=== PATIENT | male | born 1930 | race Caucasian/White ===

== ENCOUNTER 2017-10-19 22:15 | Inpatient (IN) | payer MEDICARE ==
[2017-10-19] MEDS ORDERED: Ondansetron INJ* 2 MG/ML VIAL IV PRN (22:35)
[2017-10-19] MEDS ORDERED: Acetaminophen TAB* 325 MG PO PRN (22:35)
[2017-10-19] MEDS ORDERED: Aspirin 81 mg CHEW TAB* 81 MG TAB.CHEW PO ONE ×2 (22:35→23:30)
[2017-10-19] MEDS ORDERED: hydrALAZINE IV* 20 MG/ML VIAL IV SLOW PU PRN (22:35)
[2017-10-19 22:56] LABS: ABS Basophils 0 10^3/ul (0-0.2); ABS Eosinophils 0.2 10^3/ul (0-0.6); ABS Lymphocytes 0.8 10^3/ul (1.0-4.8); ABS Monocytes 0.8 10^3/ul (0-0.8); ABS Neutrophils 4.8 10^3/ul (1.5-7.7); ABS Nucleated RBC 0 10^3/ul; Eosinophil % 3.5 % (0-6); Hematocrit 49 % (42-52); Hemoglobin 16.7 g/dl (14.0-18.0); Lymphocyte % 12.4 % (25-47); Mean Corpuscular HGB Conc 34 g/dl (31-36); Mean Corpuscular Hemoglobin 33 pg (27-31); Mean Corpuscular Volume 97 fL (80-94); Mean Platelet Volume 7.3 um3 (7.4-10.4); Nucleated Red Blood Cells % 0.1; Platelet Count 152 10^3/ul (150-450); Red Blood Count 5.04 10^6/ul (4.00-5.40); Red Cell Distribution Width 14 % (10.5-15); White Blood Count 6.7 10^3/ul (3.5-10.8)
[2017-10-19] MEDS ORDERED: LORazepam TAB(*) 1 MG PO SCH (23:00)
[2017-10-19 23:01] LABS: INR 1.02 (0.77-1.02)
[2017-10-19 23:11] LABS: EGFR Non-African American 55.7 (>60)
[2017-10-20 00:45] LABS: Urine Appearance Clear; Urine Blood Negative (Negative); Urine Color Yellow; Urine Ketones Negative (Negative); Urine Protein Negative (Negative); Urine Specific Gravity 1.017 (1.010-1.030); Urine Urobilinogen Negative (Negative)
--- NOTE | 2017-10-20 00:53 | HP ---
CC: Dr. Palafox HISTORY AND PHYSICAL: DATE OF ADMISSION: 10/19/17 PRIMARY CARE PROVIDER: None. ATTENDING PHYSICIAN WHILE IN THE HOSPITAL: Jimmy Thomas MD * ( dictated by Maldonado Flynn NP). CHIEF COMPLAINT: Altered mental status. HISTORY OF PRESENTING ILLNESS: Mr. Higgins is an 87-year-old male patient who has not sought care with the medical community and during his entire life. He does get Meals on Wheels, he lives alone. Again, no known past medical history. He essentially had Meals on Wheels delivered to his house every day. They noted today that when they went to find him around noontime he was having difficulty, they thought he was confused and they called his friend. His friend brought him to the [place] [facility] because his speech was nonsensical at times. In asking him, he says he has noticed that he has been having trouble with his speech since yesterday at around lunchtime even before Meals [employer] Whe[employer] ended up finding him today. He says that he has been having difficulty. He was unsure what was going on, but he again did not seek medical attention at that point. He denied having any weakness to one side. No trouble of vision. He does state that a week ago he did fall, he was on the ground for some time the previous week and he required assistance getting up. He finally got up and again did not seek medical care. He denied any chest pain or any shortness of breath. He says that he has not had any facial drooping, but the friend who is with him and is his surrogate decision maker noted that he had at times difficulty with his speech and his speech is not as fluent as what it normally is. He went to [place], it was noted there that his blood pressure was 200 systolic. He had an elevated troponin of 0.05. There was concern for a possible stroke, so the patient was sent to [facility] for further evaluation and care. PAST MEDICAL HISTORY: Again denied. PAST SURGICAL HISTORY: Denied. HOME MEDICATIONS: Denied. ALLERGIES TO MEDICATIONS: Include no known drug allergies. FAMILY HISTORY: Unknown. His parents when he was young. SOCIAL HISTORY: He does not smoke. He does state that he does drink on a daily basis, he is admitting it is at times 3 to 4 beers a day. He denies any recreational drug abuse. His surrogate decision maker is his friend, Angie. REVIEW OF SYSTEMS: There is no documented fever. He is denying any significant weight change. There is no ear discharge. He denies having any rhinorrhea. There is no sore throat. No thyroid enlargement. He denies having any chest pain. There is no orthopnea. He denies having any abdominal discomfort. No vomiting or diarrhea. No dysuria, no frequency. No seizure, no loss of consciousness. No pruritus and no skin ulcerations. Review of 14 systems completed, all others negative. PHYSICAL EXAMINATION GENERAL: At this time, Mr. Higgins is an 87-year-old male patient. He is chronically ill appearing. He is sitting in the hospital bed. He does not appear to be in any acute distress. VITAL SIGNS: Blood pressure was 197/114 with a pulse of 90, respirations were 20, O2 sat 97% on room air, temperature 97.6. HEENT: Head is atraumatic, normocephalic. Eyes: EOMs are intact. Sclerae were anicteric and not pale. Throat: Oral mucosa appears to be moist. No oropharyngeal erythema. NECK: Supple. LUNGS: He did have crackles in the bases. He had equal diaphragmatic expansion. HEART: Sounds S1, S2. He has regular rate and rhythm. No murmurs, rubs, or gallops. ABDOMEN: Soft, flat, nontender. Bowel sounds present. EXTREMITIES: Pulses 2+ throughout. He does have what appears to be a joint effusion to the right knee. He has an abrasion just below the right knee. He also has an abrasion to the right elbow as well. He is having difficulty bending the knee bilaterally. He says this is a chronic issue and trouble for him but he did have 5/5 strength dorsi and plantarflexor. He was able to move the upper extremities with 5/5 strength. NEUROLOGICAL: Again, speech at times is not clear. He is oriented x3. His clinic mgr were equal. His tongue was midline. He may have a slight facial droop on the right side. Ccodbn-hl-icor intact bilaterally. He is unable to do heel- to-zavala intact bilaterally because of that effusion on that right knee. EOMs are intact. Pupils react to light. His cranial nerves were intact at this point. Sensation appeared to be intact as well. No other focal deficits. SKIN: Intact. LABORATORY DATA/DIAGNOSTIC STUDIES: Again, these are reviewed from [facility]. We are repeating labs now. His urine showed trace bacteria, 6 to 10 wbc's and 0 to 2 rbc's. He had a WBC of 6.09, RBC of 4.96, hemoglobin of 16.4, hematocrit of 48, platelet count was 156,000. Toxicology appeared to be negative. He had an INR of 0.99, the PTT was 25.7. His albumin was 4.1. Troponin 0.058. BNP was 38. Sodium 138, potassium 4.4, chloride of 102, bicarb 25, BUN 25, creatinine 1.5 but no baseline, glucose was 122. AST 30, ALT 32. Mag was 2.2. He did have multiple imaging. Knee x-ray, impression: Degenerative changes in his right knee as described without acute abnormalities. Hip x-ray: Degenerative changes in bilateral hips, which appeared to be more severe on the left than on the right. Elbow x-ray: Deformity of the left elbow suggestive of old healed fracture. No definite acute fracture or dislocation. Chronic findings as described above without acute fracture or dislocation. CT of brain showed mild diffuse atrophy, no acute abnormalities. He did have an EKG today; to me it looks like an atrial flutter, rate of 89. He does have some right bundle-branch block. I do not see any ST elevations and I am not seeing any ST depression. I do not have a previous EKG for comparison but the aflutter is again new for this patient. He is rate controlled. Old medical records were reviewed. ASSESSMENT AND PLAN: Mr. Higgins is an 87-year-old male patient coming into our hospital today with complaints of difficulty with speech, initially thought to be altered mental status. I am concerned that he may have a Broca's aphasia. He is noted to be profoundly hypertensive, in addition to this, also found in what appears to be an atrial flutter. He will be admitted under inpatient status for: 1. Altered mental status. Again, I suspect he may have had a stroke, although he may have a hypertensive encephalopathy as well given how high his blood pressure is. I did touch base with Neurology and they agree they would get an MRI of the brain, echo with bubble study. I have ordered a CTA of the head and neck as well. I will get neuro checks on the patient as well and we will start him on a baby aspirin. I would like to treat the blood pressure if his diastolic is greater than 110, systolic is greater than 190. I have ordered p.r.n. hydralazine for this and will continue to follow. Because of the possible stroke, I ordered PT/OT, swallow eval as well for the patient. If he passes, we certainly will get him on a heart healthy diet. 2. Atrial flutter. Again, he will need to be anticoagulated but in the setting of the blood pressure how high it is, I would like to get it a little bit lower. In addition to this, in the setting of possible acute stroke, I would hold on anticoagulation until we know how significant possible stroke is. He is on aspirin. He is rate controlled. We are ordering an echo and we will probably need to consider getting Cardiology input as well. 3. DVT prophylaxis. I have ordered him on SCDs for the time being in the setting of acute stroke. 4. Elevated troponin. This is probably elevated in the setting of demand ischemia in the setting of acute cerebrovascular accident and also in the setting of hypertensive urgency. We will trend these. Again, EKG does not show any signs of acute ischemia. We are going to be getting an echo. 5. Alcoholism. I did place him on a WA protocol. 6. Code status. Full code. 7. Fluids, electrolytes, nutrition. Again, heart healthy diet. Pending swallow eval. TIME SPENT: On admission was 60 minutes, greater than half the time spent face- to- face with the patient obtaining my history and physical, the other half of the time was spent going over the plan of care with the patient and implementing plan of care. I did discuss the plan of care with my attending, Dr. Thomas, he is in agreement. MALDONADO FLYNN NP [id number] #: [id number] JOHN
[2017-10-20] MEDS ORDERED: Iodixanol* (CONTRAST) 320 MG/ML 100 ML SDV IV ONE (01:08)
[2017-10-20 06:00] LABS: ABS Basophils 0 10^3/ul (0-0.2); ABS Eosinophils 0.3 10^3/ul (0-0.6); ABS Lymphocytes 1.2 10^3/ul (1.0-4.8); ABS Monocytes 0.9 10^3/ul (0-0.8); ABS Nucleated RBC 0 10^3/ul; Eosinophil % 4.1 % (0-6); Hematocrit 46 % (42-52); Hemoglobin 15.6 g/dl (14.0-18.0); Lymphocyte % 18.3 % (25-47); Mean Corpuscular HGB Conc 34 g/dl (31-36); Mean Corpuscular Hemoglobin 33 pg (27-31); Mean Corpuscular Volume 97 fL (80-94); Mean Platelet Volume 7.4 um3 (7.4-10.4); Nucleated Red Blood Cells % 0.1; Platelet Count 130 10^3/ul (150-450); Red Blood Count 4.71 10^6/ul (4.00-5.40); Red Cell Distribution Width 14 % (10.5-15); White Blood Count 6.3 10^3/ul (3.5-10.8)
[2017-10-20 06:29] LABS: EGFR Non-African American 62.7 (>60)
--- NOTE | 2017-10-20 07:11 | RAD ---
INDICATION: Hypertension. COMPARISON: There are no prior studies available for comparison. TECHNIQUE: A portable view of the chest was obtained. FINDINGS: Cardiac and mediastinal contours appear to be within normal limits. The lungs are underinflated. There are small infiltrates at both lung bases. No pleural effusion is seen. IMPRESSION: LOW LUNG VOLUMES, SMALL BIBASILAR INFILTRATES.
--- NOTE | 2017-10-20 07:23 | RAD ---
INDICATION: Right elbow injury. TECHNIQUE: 2 views of the right elbow were obtained including AP and oblique views. FINDINGS: The patient was unable to be positioned for the standard images limiting the study. The bones are in normal alignment on the AP view. No fracture is seen. There is posterior soft tissue swelling. There is moderate osteoarthritic change present. IMPRESSION: LIMITED STUDY, NO FRACTURE IS SEEN. IF THE PATIENT'S SYMPTOMS PERSIST RECOMMEND FOLLOW-UP IMAGING.
[2017-10-20] MEDS: Folic Acid TAB* 1 MG PO SCH (07:56)
[2017-10-20] MEDS: Multivitamins/Minerals TAB PO SCH (07:56)
[2017-10-20] MEDS: Thiamine TAB* 100 MG TAB PO SCH (07:56)
[2017-10-20] MEDS: Aspirin 81 mg CHEW TAB* 81 MG TAB.CHEW PO SCH (07:56)
[2017-10-20] MEDS ORDERED: Atorvastatin* 40 MG TAB PO SCH (09:00)
[2017-10-20] MEDS ORDERED: Atorvastatin* 40 MG TAB PO ONE (09:22)
--- NOTE | 2017-10-20 11:04 | RAD ---
INDICATION: CVA. COMPARISON: There are no prior studies available for comparison. TECHNIQUE: A CT scan of the brain was performed without contrast. This was followed by a CT angiogram of the head and neck performed following intravenous injection of 80 ml of Visipaque 320 nonionic contrast. Contiguous axial sections were obtained from the thoracic inlet through the skull vertex. Images were reconstructed in the coronal and sagittal planes and in a 3-D volume rendered format. The distal cervical internal carotid artery diameter is used as the denominator for stenosis measurement. FINDINGS: CT OF THE BRAIN: The ventricles, cisterns and sulci are prominent consistent with diffuse atrophy. No significant focal abnormality or mass effect is seen. There is no evidence for hemorrhage. There appears to be loss of domingo-white differentiation in the left frontal lobe and insula. RIGHT CAROTID: The right common carotid artery appears widely patent. There is mild to moderate calcific present within the carotid bulb and proximal internal carotid artery causing a mild approximately 30% stenosis. No hemodynamically significant stenosis is seen. The remaining internal carotid artery appears widely patent. LEFT CAROTID: The left common carotid artery appears widely patent. There appears to be complete occlusion of the internal carotid artery beginning at the carotid bulb and extending throughout the neck and head. VERTEBRALS: There is a high-grade stenosis at the origin of the left vertebral artery. The left vertebral artery is dominant and otherwise widely patent. The right vertebral artery is extremely small throughout and appears occluded in its distal portion. CTA BRAIN: The intracranial right internal carotid artery appears widely patent. The right anterior and middle cerebral arteries appear patent. The intracranial left internal carotid artery is occluded throughout. The A1 segment of the left anterior cerebral artery is occluded. The A2 segment is reconstituted via the communicating artery. The proximal portion of the left middle cerebral artery is occluded. There is faint enhancement M1 and M2 segments which is asymmetrically diminished relative to the right side. There is moderate narrowing of the proximal basilar artery. The posterior cerebral arteries appear patent with mild to moderate areas of narrowing bilaterally. The right posterior cerebral artery arises from the posterior communicating artery consistent with normal variation. There is decreased perfusion of the left frontal, temporal and parietal lobes. No aneurysm or vascular malformation is seen. NECK: No significant enlarged lymph nodes are seen within the neck. The thyroid, parotid and submandibular glands appear to be within normal limits. The lung apices appear clear. The paranasal sinuses and mastoid air cells appear clear IMPRESSION: 1. 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 THERE IS RECONSTITUTION OF THE OF BOTH ARTERIES DESCRIBED. THERE IS ASYMMETRIC DECREASED PERFUSION OF THE LEFT FRONTAL PARIETAL AND TEMPORAL LOBES AND LOSS OF DOMINGO-WHITE DIFFERENTIATION SUGGESTIVE OF A LARGE ACUTE NONHEMORRHAGIC INFARCT. 2. 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 THE RIGHT VERTEBRAL ARTERY IS EXTREMELY SMALL AND CALIBER AND APPEARS TO BE OCCLUDED DISTALLY. 3. MODERATE GRADE STENOSIS OF THE PROXIMAL BASILAR ARTERY. CPT II Codes: 3100F
--- NOTE | 2017-10-20 12:22 | CONS ---
NEUROLOGY CONSULT REPORT: DATE OF CONSULT: 10/20/17 REQUESTING CLINICIAN: Maldonado Flynn NP REASON FOR CONSULT: Aphasia. HISTORY OF PRESENT ILLNESS: The patient is an 87-year-old male who on Sunday when the [employer] went to deliver his meals, found that he is not normal and had difficulty to talk. Seems he was having difficulty with his speech since the day before (). He was taken to [place] [facility] and then transferred to [facility] for further workup. The patient did not have any other associated symptoms such as weakness, numbness, dizziness or problem with walking. He did not seek any medical attention in his entire life and so no past medical history is apparent. PAST MEDICAL HISTORY: Patient did not seek any medical attention for years, so he was not aware of any medical issues. PAST SURGICAL HISTORY: None. MEDICATIONS: He is not on any home medications. ALLERGIES: No known drug allergies. FAMILY HISTORY: Does not know much about his parent's health as they when he was young. SOCIAL HISTORY: He does not smoke. He drinks 2-4 beers daily. Does not use drugs. REVIEW OF SYSTEMS: Complete review of systems was performed and other than what was mentioned above is negative. PHYSICAL EXAM: Blood pressure is 161/78, temperature 97.5, pulse rate 67, respiratory rate 20, O2 sat 97% on room air. The patient is awake, alert and oriented to month and year, but not to date. He knows he is in the hospital. His speech is moderately dysarthric but intelligible. For the most part his comprehension is relatively intact for simple commands, but sometimes needs to repeat the commands for him to comprehend. Does not seem to fully comprehend complicated questions. Pupils are symmetric and reactive to light. Extraocular movements are intact. Does not seem to have any visual field deficit. Gaze is normal. Strength is 5/5 in the upper and lower extremities with no pronator drift. Sensory exam seems intact to upper and lower extremities. Finger to nose is intact bilaterally. Gait is narrow based but cautious. His NIH stroke scale is 2 with 1 score for moderate asphasia and 1 score for moderate dysarthria. DIAGNOSTIC STUDIES/LAB DATA: WBC 6.3, hemoglobin 15.6, hematocrit 46. Sodium 136, potassium 4.1, BUN 21, creatinine 1.1. Urine has 1+ leukocyte esterase and 1+ rbc. Imaging: The patient had a CTA of the head and neck which showed occlusion of the left internal carotid artery and proximal left middle cerebral artery and anterior cerebral artery. There is partial reconstitution of the distal segment of the left middle cerebral artery and anterior cerebral artery. There is some edema in the left frontal lobe and insular cortex suggesting ischemia. There is segmental occlusion involving the nondominant left vertebral artery. ASSESSMENT AND PLAN: The patient is an 87-year-old male with a two-day history of aphasia who was found to have a stroke in the left ERICKSON and MCA territory with extensive atherosclerotic disease as is evident in his CTA of the head and neck. The onset of the symptoms was on some time during the day, which was longer than 24 hours by the time he presentation to the [facility] so he was not a candidate for thrombolytic therapy or vascular intervention. He is now probably close to 36-48 hours post stroke. At this point, continue to keep the patient on antiplatelet. Probably will consider dual antiplatelet therapy for him in the upcoming days. Allow for permissive hypertension with systolic blood pressures now lower than 150 to 160 mmHg. Starting tomorrow (>48 hours post stroke) can start to control blood pressure with tighter parameters. Continue high dose statins. The patient needs an MRI of the brain to determin the extent and age of the stroke and an echocardiogram of the heart, plus telemetry. [id number]/[facility] #: [id number] MTDD
--- NOTE | 2017-10-20 12:48 | RAD ---
INDICATION: CVA. COMPARISON: Comparison is made with a prior CT of the brain from October 20, 2017. TECHNIQUE: Sagittal T1, axial T1, T2, susceptibility, FLAIR and diffusion weighted images were obtained. FINDINGS: The ventricles, cisterns and sulci are prominent consistent with diffuse atrophy. There is a focal small to moderate size area of restricted diffusion and T2 hyperintensity present in the anterior left temporal lobe, insula, external capsule, lentiform nucleus with a small area of extension to the left periventricular white matter consistent with a nonhemorrhagic infarct. No other focal abnormalities are seen. No significant mass effect is noted. There is no evidence for hemorrhage. There is absence of the normal flow void in the left internal carotid and middle cerebral arteries consistent with occlusion of the internal carotid artery and partial occlusion of the middle cerebral artery as previously noted. There is mucosal thickening within the sphenoid sinus. The maxillary, ethmoid and frontal sinuses are clear. IMPRESSION: FINDINGS MOST CONSISTENT WITH A [id number] SIZED SUBACUTE NONHEMORRHAGIC INFARCT INVOLVING THE LEFT TEMPORAL AND FRONTAL LOBES.
--- NOTE | 2017-10-20 15:40 | PN ---
Subjective Date of Service: 10/20/17 Interval History: HOSPITALIST PROGRESS NOTE Patient seen and examined at bedside. Care reviewed and d/w Marie Tim RN. Significant expressive aphasia, cannot communicate well. Able to answer yes/no questions and follow commands, but cannot answer complex question or multiple steps commands. Family History: Unchanged from Admission Social History: Unchanged from Admission Past Medical History: Unchanged from Admission Objective Active Medications: Acetaminophen (Tylenol Tab*) 650 mg PO Q4H PRN PRN Reason: FEVER/PAIN Last Admin: 10/20/17 08:22 Dose: 650 mg Aspirin (Aspirin 81 Mg Chew Tab*) 81 mg PO DAILY [facility] Last Admin: 10/20/17 07:56 Dose: 81 mg Atorvastatin Calcium (Lipitor*) 80 mg PO DAILY [facility] Folic Acid (Folvite Tab*) 1 mg PO DAILY [facility] Last Admin: 10/20/17 07:56 Dose: 1 mg Hydralazine HCl (Apresoline Iv*) 5 mg IV SLOW PU Q6H PRN PRN Reason: BLOOD PRESSURE Lorazepam (Ativan Tab(*)) 0 - 6 mg PO .PER [facility] PROTOCOL [facility]; Protocol Multivitamins/Minerals (Theragran/Minerals Tab*) 1 tab PO DAILY [facility] Last Admin: 10/20/17 07:56 Dose: 1 tab Ondansetron HCl (Zofran Inj*) 4 mg IV Q6H PRN PRN Reason: NAUSEA Thiamine HCl (Vitamin B-1 Tab*) 100 mg PO DAILY [facility] Last Admin: 10/20/17 07:56 Dose: 100 mg Vital Signs - 8 hr 10/20/17 10/20/17 10/20/17 07:43 09:24 12:54 Temperature 97.6 F 97.5 F 97.8 F Pulse Rate 68 67 72 Respiratory 16 20 19 Rate Blood Pressure 174/85 151/78 129/87 (mmHg) O2 Sat by Pulse 97 93 95 Oximetry 10/20/17 15:22 Temperature 97.7 F Pulse Rate 70 Respiratory 14 Rate Blood Pressure 146/64 (mmHg) O2 Sat by Pulse 98 Oximetry Oxygen Devices in Use Now: None Appearance: Elderly gentleman lying in bed in NAD. Eyes: No Scleral Icterus Ears/Nose/Mouth/Throat: Mucous Membranes Moist Neck: Trachea Midline Respiratory: Symmetrical Chest Expansion and Respiratory Effort, Clear to Percussion Cardiovascular: - - Normal S1 and S2, irregularly irregular Abdominal: NL Sounds; No Tenderness; No Distention - obese Neurological: - - Alert and awake, expressive aphasia, mild dysarthria Nutrition: Taking PO's Result Diagrams: 10/20/17 05:35 10/20/17 05:35 Assess/Plan/Problems-Billing Assessment: Mr Higgins is an 87yo M with no significant PMH but limited contact with health system, who presented with expressive aphasia, 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 - Patient Problems (1) Hypertensive urgency Comment: - Present on admission - now resolved. (2) CVA (cerebral vascular accident) Comment: - CTA head/necl shows left internal carotid occlusion with proximal MCA and ERICKSON occlusion as well. Flow reconstitution is present. Left vertebral high grade stenosis and small caliber right with distal occlusion. - MRI brain showed small to moderate sized subacute nonhemorrhagic infarct involving the left frontal and temporal lobes. - Neurology input appreciated - not a candidate for thrombolytic or vascular intervention as presentation was >24h. - Continue Aspirin for now - plan for possible DAPT in the next couple days. - Permissive hypertension for now - goal SBP>150 <190. - Continue high dose Atorvastatin. - Awaiting echocardiogram. - Continue to monitor on Telemetry. - PT/OT/Speech evaluations followed by PMRU consult. - Continue neurochecks. (3) Atrial flutter Comment: - Rate is controlled. - Anticoagulation contraindicated in the setting of acute stroke, but will need it in the future. (4) Elevated troponin Comment: - Secondary to CVA and demand ischemia in the setting of hypertensive emergency. (5) HTN (hypertension) Comment: - Permissive HTN for now. Plan to start antihypertensives tomorrow. (6) Alcohol use Comment: - As per HPI, patient drinks 4 beers/day. - No signs of withdrawal at this time. - Continue WAM. (7) DVT prophylaxis Comment: - D/w Neurology - SQ heparin q12h. (8) Full code status Status and Disposition: Inpatient. HCP updated at bedside.
[2017-10-20] MEDS: Heparin VIAL(*) 5000 UNITS/ML VIAL (FIVE THOUSAND) SUBCUT SCH (21:30)
[2017-10-20] MEDS ORDERED: NS 0.9% 1000 ML* 1,000 ML IV SCH (22:30)
[2017-10-21] MEDS: Atorvastatin* 80 MG TAB PO SCH (07:58)
[2017-10-21] MEDS: Multivitamins/Minerals TAB PO SCH (07:58)
[2017-10-21] MEDS: Aspirin 81 mg CHEW TAB* 81 MG TAB.CHEW PO SCH (07:58)
[2017-10-21] MEDS: Thiamine TAB* 100 MG TAB PO SCH (07:59)
[2017-10-21] MEDS: Heparin VIAL(*) 5000 UNITS/ML VIAL (FIVE THOUSAND) SUBCUT SCH ×2 (07:59→21:09)
[2017-10-21] MEDS: Folic Acid TAB* 1 MG PO SCH (07:59)
--- NOTE | 2017-10-21 11:59 | ECHO ---
Patient: GEETA QUEEN [facility] Rec#: [id number] : 1930 Date: 10/21/2017 Age: 87y Height: 170.18 cm / 67.0 in Weight: 92.53 kg / 203.9 lbs Sex: M BSA: 2.04 Room#: 434 Admit Date#: 10/19/2017 Type: Inpatient Referring: Maldonado Flynn NP Reading: Hoa Palacios MD Wire Preparation Machine Tender: Sabine Stover RUST Transthoracic Echocardiogram Indication: CP BP: 155/89 HR: 95 Rhythm: A-Flutter Findings History: HTN,altered mental status, daily ETOH,a=flutter. Technical Comments: The study quality is good. Completed at 1100. Left Ventricle: The left ventricular chamber size is normal. Moderate concentric left ventricular hypertrophy is observed. Global left ventricular wall motion and contractility are within normal limits. The estimated ejection fraction is 55-60%. The left ventricular diastolic filling pattern is consistent with elevated left ventricular end-diastolic pressure. Left Atrium: The left atrium is mildly dilated. Right Ventricle: The right ventricular cavity size is normal. The right ventricular global systolic function is normal. Right Atrium: The right atrium is mildly dilated. There is no patent foramen ovale visualized. A patent foramen ovale is not demonstrated with color Doppler and agitated contrast. Aortic Valve: The aortic valve is trileaflet. The aortic valve leaflets are mildly thickened. There is mild aortic regurgitation. There is no evidence of aortic stenosis. Mitral Valve: The mitral valve leaflets appear normal. There is trace to mild mitral regurgitation. There is no evidence of mitral stenosis. Tricuspid Valve: The tricuspid valve leaflets are normal. There is mild tricuspid regurgitation. There is no tricuspid stenosis. Pulmonic Valve: The pulmonic valve appears normal. There is no evidence of pulmonic regurgitation. There is no pulmonic stenosis. Pericardium: A pericardial fat pad is visualized. Aorta: There is mild dilatation of the ascending aorta. There is no dilatation of the aortic arch. There is no dilation of the aortic root. Pulmonary Artery: The main pulmonary artery appears normal. Venous: The venous system is not well visualized. Contrast: Normal saline was used as contrast for the bubble study. Intravenous contrast was used to help determine presence of intracardiac shunting. Conclusions Moderate concentric left ventricular hypertrophy is observed. Global left ventricular wall motion and contractility are within normal limits. The estimated ejection fraction is 55-60%. The left ventricular diastolic filling pattern is consistent with elevated left ventricular end-diastolic pressure. The right ventricular global systolic function is normal. No patent foramen ovale noted using color Doppler and agitated contrast. The aortic valve leaflets are mildly thickened. There is mild aortic regurgitation. There is trace to mild mitral regurgitation. There is mild tricuspid regurgitation. There is mild dilatation of the ascending aorta: 3.6 cm. No prior echo to compare. Measurements Name Value Normal Range RVIDd (AP) 2D 3 cm (0.9 - 2.6) RVDdMajor (2D) 3 cm (2.2 - 4.4) RAd ISD 4CH 5.2 cm (3.4 - 4.9) RA (A4C)W 3.9 cm (2.9 - 4.6) IVSd (2D) 1.4 cm (0.6 - 1) LVPWd (2D) 1.4 cm (0.6 - 1) LVIDd (2D) 3.9 cm (3.6 - 5.4) LVIDs (2D) 2.6 cm - LV FS (2D) 33 % (25 - 45) Aortic Annulus 2.1 cm (1.4 - 2.6) Ao root diameter (2D) 3.4 cm (2.1 - 3.5) Ascending Ao 3.6 cm (2.1 - 3.4) Aortic arch 2.7 cm (1.8 - 3.4) Descending Ao 0.3 cm - LA dimension (AP) 2D 4.1 cm (2.3 - 3.8) LAd ISD 4CH 5.8 cm (2.9 - 5.3) LA ISD 4CH W 4.1 cm (2.5 - 4.5) Name Value Normal Range LA ESV SP 4CH (A/L) 47 ml - LA ESV SP 2CH (A/L) 47 ml - LA ESV BP (A/L) 48 ml - LA ESV BP (A/L) index 23.44 ml/m2 - LA ESV SP 4CH (MOD) 43 ml - LA ESV SP 2CH (MOD) 44 ml - Name Value Normal Range MV E-wave Vmax 0.9 m/sec - MV deceleration time 211 msec - MV A-wave Vmax 0.5 m/sec - MV E:A ratio 1.66 ratio - LV septal e' Vmax 0.05 m/sec - LV lateral e' Vmax 0.07 m/sec - LV E:e' septal ratio 18 ratio - LV E:e' lateral ratio 12.85 ratio - Name Value Normal Range AV Vmax 1.4 m/sec - AV VTI 26 cm - AV peak gradient 8.02 mmHg - AV mean gradient 3.87 mmHg - LVOT Vmax 0.7 m/sec - LVOT VTI 12.2 cm - LVOT peak gradient 2.1 mmHg - LVOT mean gradient 1.07 mmHg - AR PHT 518 msec - AR peak gradient 60.18 mmHg - Name Value Normal Range MR Vmax 3.4 m/sec - MR VTI 148 cm - Name Value Normal Range TR Vmax 2.2 m/sec - TR peak gradient 19 mmHg - RAP 8 mmHg - RVSP 27 mmHg - Name Value Normal Range PV Vmax 0.7 m/sec - PV peak gradient 2.09 mmHg -
--- NOTE | 2017-10-21 14:03 | PN ---
Subjective Date of Service: 10/21/17 Interval History: HOSPITALIST PROGRESS NOTE Patient seen and examined at bedside. Care reviewed and d/w Marie Tim RN. His speech is more intelligible today, c/o constipation. Family History: Unchanged from Admission Social History: Unchanged from Admission Past Medical History: Unchanged from Admission Objective Active Medications: Acetaminophen (Tylenol Tab*) 650 mg PO Q4H PRN PRN Reason: FEVER/PAIN Last Admin: 10/20/17 08:22 Dose: 650 mg Aspirin (Aspirin 81 Mg Chew Tab*) 81 mg PO DAILY [facility] Last Admin: 10/21/17 07:58 Dose: 81 mg Atorvastatin Calcium (Lipitor*) 80 mg PO DAILY [facility] Last Admin: 10/21/17 07:58 Dose: 80 mg Docusate Sodium (Colace Cap*) 100 mg PO BID [facility] Folic Acid (Folvite Tab*) 1 mg PO DAILY [facility] Last Admin: 10/21/17 07:59 Dose: 1 mg Heparin Sodium (Porcine) (Heparin Vial(*)) 5,000 units SUBCUT Q12HR [facility] Last Admin: 10/21/17 07:59 Dose: 5,000 units Hydralazine HCl (Apresoline Iv*) 5 mg IV SLOW PU Q6H PRN PRN Reason: BLOOD PRESSURE Lorazepam (Ativan Tab(*)) 0 - 6 mg PO .PER [facility] PROTOCOL [facility]; Protocol Multivitamins/Minerals (Theragran/Minerals Tab*) 1 tab PO DAILY [facility] Last Admin: 10/21/17 07:58 Dose: 1 tab Ondansetron HCl (Zofran Inj*) 4 mg IV Q6H PRN PRN Reason: NAUSEA Polyethylene Glycol/Electrolytes (Miralax*) 17 gm PO 0800,2100 [facility] Thiamine HCl (Vitamin B-1 Tab*) 100 mg PO DAILY [facility] Last Admin: 10/21/17 07:59 Dose: 100 mg Vital Signs - 8 hr 10/21/17 10/21/17 10/21/17 07:45 07:48 11:31 Temperature 97.4 F 98.1 F Pulse Rate 89 93 Respiratory 20 20 20 Rate Blood Pressure 165/95 149/104 (mmHg) O2 Sat by Pulse 97 98 97 Oximetry Oxygen Devices in Use Now: None Appearance: Elderly gentleman sitting up in bed in NAD. 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 - Patient Problems (1) Hypertensive urgency Comment: - Present on admission - now resolved. (2) CVA (cerebral vascular accident) Comment: - CTA head/neck shows left internal carotid occlusion with proximal MCA and ERICKSON occlusion as well. Flow reconstitution is present. Left vertebral high grade stenosis and small caliber right with distal occlusion. - MRI brain showed small to moderate sized subacute nonhemorrhagic infarct involving the left frontal and temporal lobes. - Neurology input appreciated - not a candidate for thrombolytic or vascular intervention as presentation was >24h. - D/w Neurology - will start DAPT and address hypertension - start Amlodipine. - Continue high dose Atorvastatin. - Echocardiogram showed EF 55-60%, no PFO, no significant valve disease. - Continue to monitor on Telemetry. - PT/OT/Speech evaluations followed by PMRU consult. - Continue neurochecks. (3) Atrial flutter Comment: - Will start metoprolol to obtain better rate control. - Anticoagulation contraindicated in the setting of acute stroke, but will need it in the future. (4) Elevated troponin Comment: - Secondary to CVA and demand ischemia in the setting of hypertensive emergency. - Echo showed normal EF with no wall motion abnormalities. (5) HTN (hypertension) Comment: - D/w Neurology - will start metoprolol. (6) Alcohol use Comment: - As per HPI, patient drinks 4 beers/day. - No signs of withdrawal at this time. - D/c WAM. (7) DVT prophylaxis Comment: - D/w Neurology - SQ heparin q12h. (8) Full code status Status and Disposition: Inpatient.
--- NOTE | 2017-10-21 14:07 | PN ---
Progress Note - Progress Note Date of Service: 10/21/17 SOAP: Neurology consult service Date of service: 10/21/17 Subjective: The patient had no acute events overnight. He feels that his talking is slightly better Objective: Vital Signs Temp Pulse Resp BP Pulse Ox 98.1 F 93 20 149/104 97 10/21/17 11:31 10/21/17 11:31 10/21/17 11:31 10/21/17 11:31 10/21/17 11:31 Current Medications Acetaminophen (Tylenol Tab*) 650 mg PO Q4H PRN PRN Reason: FEVER/PAIN Last Admin: 10/20/17 08:22 Dose: 650 mg Aspirin (Aspirin 81 Mg Chew Tab*) 81 mg PO DAILY [facility] Last Admin: 10/21/17 07:58 Dose: 81 mg Atorvastatin Calcium (Lipitor*) 80 mg PO DAILY [facility] Last Admin: 10/21/17 07:58 Dose: 80 mg Docusate Sodium (Colace Cap*) 100 mg PO BID [facility] Folic Acid (Folvite Tab*) 1 mg PO DAILY [facility] Last Admin: 10/21/17 07:59 Dose: 1 mg Heparin Sodium (Porcine) (Heparin Vial(*)) 5,000 units SUBCUT Q12HR [facility] Last Admin: 10/21/17 07:59 Dose: 5,000 units Hydralazine HCl (Apresoline Iv*) 5 mg IV SLOW PU Q6H PRN PRN Reason: BLOOD PRESSURE Lorazepam (Ativan Tab(*)) 0 - 6 mg PO .PER [facility] PROTOCOL [facility]; Protocol Multivitamins/Minerals (Theragran/Minerals Tab*) 1 tab PO DAILY [facility] Last Admin: 10/21/17 07:58 Dose: 1 tab Ondansetron HCl (Zofran Inj*) 4 mg IV Q6H PRN PRN Reason: NAUSEA Polyethylene Glycol/Electrolytes (Miralax*) 17 gm PO 0800,2100 [facility] Thiamine HCl (Vitamin B-1 Tab*) 100 mg PO DAILY [facility] Last Admin: 10/21/17 07:59 Dose: 100 mg Laboratory Last Values WBC 6.3 10^3/ul (3.5-10.8) 10/20/17 05:35 RBC 4.71 10^6/ul (4.00-5.40) 10/20/17 05:35 Hgb 15.6 g/dl (14.0-18.0) 10/20/17 05:35 Hct 46 % (42-52) 10/20/17 05:35 MCV 97 fL (80-94) H 10/20/17 05:35 MCH 33 pg (27-31) H 10/20/17 05:35 MCHC 34 g/dl (31-36) 10/20/17 05:35 RDW 14 % (10.5-15) 10/20/17 05:35 Plt Count 130 10^3/ul (150-450) L 10/20/17 05:35 MPV 7.4 um3 (7.4-10.4) 10/20/17 05:35 Neut % (Auto) 63.2 % (38-83) 10/20/17 05:35 Lymph % (Auto) 18.3 % (25-47) L 10/20/17 05:35 [place] % (Auto) 13.7 % (0-7) H 10/20/17 05:35 Eos % (Auto) 4.1 % (0-6) 10/20/17 05:35 Baso % (Auto) 0.7 % (0-2) 10/20/17 05:35 Absolute Neuts (auto) 4.0 10^3/ul (1.5-7.7) 10/20/17 05:35 Absolute Lymphs (auto) 1.2 10^3/ul (1.0-4.8) 10/20/17 05:35 Absolute Monos (auto) 0.9 10^3/ul (0-0.8) H 10/20/17 05:35 Absolute Eos (auto) 0.3 10^3/ul (0-0.6) 10/20/17 05:35 Absolute Basos (auto) 0 10^3/ul (0-0.2) 10/20/17 05:35 Absolute Nucleated RBC 0 10^3/ul 10/20/17 05:35 Nucleated RBC % 0.1 10/20/17 05:35 INR (Anticoag Therapy) 1.02 (0.77-1.02) 10/19/17 22:40 Sodium 136 mmol/L (135-145) 10/20/17 05:35 Potassium 4.1 mmol/L (3.5-5.0) 10/20/17 05:35 Chloride 107 mmol/L (101-111) 10/20/17 05:35 Carbon Dioxide 20 mmol/L (22-32) L 10/20/17 05:35 Anion Gap 9 mmol/L (2-11) 10/20/17 05:35 BUN 21 mg/dL (6-24) 10/20/17 05:35 Creatinine 1.11 mg/dL (0.67-1.17) 10/20/17 05:35 Est GFR ( Amer) 75.8 (>60) 10/20/17 05:35 Est GFR (Non-Af Amer) 62.7 (>60) 10/20/17 05:35 BUN/Creatinine Ratio 18.9 (8-20) 10/20/17 05:35 Glucose 100 mg/dL (70-100) 10/20/17 05:35 Hemoglobin A1c 5.6 % (4.0-5.6) 10/20/17 05:35 Calcium 9.1 mg/dL (8.6-10.3) 10/20/17 05:35 Magnesium 2.1 mg/dL (1.9-2.7) 10/19/17 22:40 Total Bilirubin 0.70 mg/dL (0.2-1.0) 10/19/17 22:40 Direct Bilirubin 0.10 mg/dL (0.03-0.18) 10/19/17 22:40 Indirect Bilirubin 0.6 mg/dL (0.3-1.0) 10/19/17 22:40 AST 36 U/L (13-39) 10/19/17 22:40 ALT 24 U/L (7-52) 10/19/17 22:40 Alkaline Phosphatase 100 U/L (34-104) 10/19/17 22:40 Ammonia 49 mcmol/L (16-53) 10/19/17 22:40 Total Creatine Kinase 377 U/L (10-223) H 10/19/17 22:40 Troponin I 0.06 ng/mL (<0.04) H* 10/20/17 01:50 B-Natriuretic Peptide 63 pg/mL (-100) 10/19/17 22:40 Total Protein 7.9 g/dL (6.4-8.9) 10/19/17 22:40 Albumin 4.3 g/dL (3.2-5.2) 10/19/17 22:40 Globulin 3.6 g/dL (2-4) 10/19/17 22:40 Albumin/Globulin Ratio 1.2 (1-3) 10/19/17 22:40 Triglycerides 65 mg/dL 10/20/17 05:35 Cholesterol 177 mg/dL 10/20/17 05:35 LDL Cholesterol 110 mg/dL 10/20/17 05:35 HDL Cholesterol 53.9 mg/dL 10/20/17 05:35 Vitamin B12 394 pg/mL (180-914) 10/19/17 22:40 TSH 4.23 mcIU/mL (0.34-5.60) 10/19/17 22:40 Urine Color Yellow 10/19/17 00:15 Urine Appearance Clear 10/19/17 00:15 Urine pH 6.0 (5-9) 10/19/17 00:15 Ur Specific [place] 1.017 (1.010-1.030) 10/19/17 00:15 Urine Protein Negative (Negative) 10/19/17 00:15 Urine Ketones Negative (Negative) 10/19/17 00:15 Urine Blood Negative (Negative) 10/19/17 00:15 Urine Nitrate Negative (Negative) 10/19/17 00:15 Urine Bilirubin Negative (Negative) 10/19/17 00:15 Urine Urobilinogen Negative (Negative) 10/19/17 00:15 Ur Leukocyte Esterase 1+ (Negative) A 10/19/17 00:15 Urine WBC (Auto) Trace(0-5/hpf) (Absent) 10/19/17 00:15 Urine RBC (Auto) 1+(3-5/hpf) (Absent) A 10/19/17 00:15 Ur Squamous Epith Cells Present (Absent) A 10/19/17 00:15 Urine Bacteria Absent (Absent) 10/19/17 00:15 Urine Glucose Negative (Negative) 10/19/17 00:15 PHYSICAL EXAM: The patient is awake, alert and oriented to month and year, but not to date. His speech is moderately dysarthric but intelligible. He follows and understands simple commands, but sometimes needs to repeat the commands for him to comprehend. Pupils are symmetric and reactive to light. Extraocular movements are intact. Does not seem to have any visual field deficit. Gaze is normal. Strength is 5/5 in the upper and lower extremities with no pronator drift. Sensory exam intact to upper and lower extremities. Finger to nose is intact bilaterally. Similar to admission time, his NIH stroke scale is 2 with 1 score for moderate asphasia and 1 score for moderate dysarthria. MRI brain: IMPRESSION: FINDINGS MOST CONSISTENT WITH A [id number] SIZED SUBACUTE NONHEMORRHAGIC INFARCT INVOLVING THE LEFT TEMPORAL AND FRONTAL LOBES. Assessment and plan: 87-year-old male with history of extensive atherosclerotic disease and now stroke in the left temporo-frontal region. The patient is currently probably 72 hours post stroke. Can start to have tighter treatment for his blood pressure. Start dual antiplatelet therapy with aspirin and plavix. Continue high dose statins. Transthoracic echo was negative for thrombosis. Continue speech therapy.
[2017-10-21] MEDS: Polyethylene Glycol 3350* 17 GM PACKET PO SCH ×2 (14:08→21:08)
[2017-10-21] MEDS: Clopidogrel TAB* 75 MG PO SCH (14:27)
[2017-10-21] MEDS: Metoprolol Succinate XL TAB* 25 MG PO SCH (14:27)
[2017-10-21] MEDS: Docusate CAP* 100 MG PO SCH ×2 (14:27→21:07)
[2017-10-21] MEDS ORDERED: amLODIPine TAB* 5 MG PO SCH (15:00)
[2017-10-22] MEDS: Polyethylene Glycol 3350* 17 GM PACKET PO SCH ×2 (07:13→19:43)
[2017-10-22] MEDS: Docusate CAP* 100 MG PO SCH (07:13)
[2017-10-22] MEDS: Atorvastatin* 80 MG TAB PO SCH (08:26)
[2017-10-22] MEDS: Metoprolol Succinate XL TAB* 25 MG PO SCH (08:26)
[2017-10-22] MEDS: Thiamine TAB* 100 MG TAB PO SCH (08:26)
[2017-10-22] MEDS: Clopidogrel TAB* 75 MG PO SCH (08:26)
[2017-10-22] MEDS: Multivitamins/Minerals TAB PO SCH (08:26)
[2017-10-22] MEDS: Aspirin 81 mg CHEW TAB* 81 MG TAB.CHEW PO SCH (08:26)
[2017-10-22] MEDS: Folic Acid TAB* 1 MG PO SCH (08:27)
[2017-10-22] MEDS: Heparin VIAL(*) 5000 UNITS/ML VIAL (FIVE THOUSAND) SUBCUT SCH ×2 (08:27→21:00)
--- NOTE | 2017-10-22 13:59 | PN ---
Subjective Date of Service: 10/22/17 Interval History: Pt still very aphasic, no complaints Family History: Unchanged from Admission Social History: Unchanged from Admission Past Medical History: Unchanged from Admission Objective Active Medications: Acetaminophen (Tylenol Tab*) 650 mg PO Q4H PRN PRN Reason: FEVER/PAIN Last Admin: 10/20/17 08:22 Dose: 650 mg Aspirin (Aspirin 81 Mg Chew Tab*) 81 mg PO DAILY [facility] Last Admin: 10/22/17 08:26 Dose: 81 mg Atorvastatin Calcium (Lipitor*) 80 mg PO DAILY [facility] Last Admin: 10/22/17 08:26 Dose: 80 mg Clopidogrel Bisulfate (Plavix Tab*) 75 mg PO DAILY [facility] Last Admin: 10/22/17 08:26 Dose: 75 mg Docusate Sodium (Colace Cap*) 100 mg PO BID [facility] Last Admin: 10/22/17 07:13 Dose: Not Given Folic Acid (Folvite Tab*) 1 mg PO DAILY [facility] Last Admin: 10/22/17 08:27 Dose: 1 mg Heparin Sodium (Porcine) (Heparin Vial(*)) 5,000 units SUBCUT Q12HR [facility] Last Admin: 10/22/17 08:27 Dose: 5,000 units Hydralazine HCl (Apresoline Iv*) 5 mg IV SLOW PU Q6H PRN PRN Reason: BLOOD PRESSURE Metoprolol Succinate (Toprol Xl Tab*) 25 mg PO DAILY [facility] Last Admin: 10/22/17 08:26 Dose: 25 mg Multivitamins/Minerals (Theragran/Minerals Tab*) 1 tab PO DAILY [facility] Last Admin: 10/22/17 08:26 Dose: 1 tab Ondansetron HCl (Zofran Inj*) 4 mg IV Q6H PRN PRN Reason: NAUSEA Polyethylene Glycol/Electrolytes (Miralax*) 17 gm PO 0800,2100 [facility] Last Admin: 10/22/17 07:13 Dose: Not Given Thiamine HCl (Vitamin B-1 Tab*) 100 mg PO DAILY [facility] Last Admin: 10/22/17 08:26 Dose: 100 mg Vital Signs - 8 hr 10/22/17 10/22/17 10/22/17 07:11 08:20 11:48 Temperature 97.3 F 97.4 F Pulse Rate 94 68 Respiratory 20 20 20 Rate Blood Pressure 142/89 149/71 (mmHg) O2 Sat by Pulse 97 97 Oximetry Oxygen Devices in Use Now: None Appearance: 87 yo M in nAD, with mixed aphasia, unable to follow verbal commands, difficulty naming objects Eyes: No Scleral Icterus, PERRLA Ears/Nose/Mouth/Throat: NL Teeth, Lips, Gums, Mucous Membranes Moist Neck: NL Appearance and Movements; NL JVP, Trachea Midline Respiratory: Symmetrical Chest Expansion and Respiratory Effort, Clear to Auscultation Cardiovascular: NL Sounds; No Murmurs; No JVD, No Edema Abdominal: NL Sounds; No Tenderness; No Distention, No Hepatosplenomegaly Lymphatic: No Cervical Adenopathy Extremities: No Edema, No Clubbing, Cyanosis Skin: No Nodules or Sclerosis Neurological: NL Muscle Strength and Tone, - - mixed aphasia noted Result Diagrams: 10/20/17 05:35 10/20/17 05:35 Microbiology and Other Data: Microbiology 10/19/17 00:15 Urine Culture - Final Urine No Growth (<1,000 CFU/mL) Assess/Plan/Problems-Billing Assessment: Mr Higgins is an 87yo M with no significant PMH but limited contact with health system, who presented with expressive aphasia, 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 - Patient Problems (1) CVA (cerebral vascular accident) Comment: - CTA head/neck shows left internal carotid occlusion with proximal MCA and ERICKSON occlusion as well. Flow reconstitution is present. Left vertebral high grade stenosis and small caliber right with distal occlusion. - MRI brain showed small to moderate sized subacute nonhemorrhagic infarct involving the left frontal and temporal lobes. - Neurology input appreciated - not a candidate for thrombolytic or vascular intervention as presentation was >24h. - D/w Neurology - cont DAPT - Continue high dose Atorvastatin. - Echocardiogram showed EF 55-60%, no PFO, no significant valve disease. - Continue to monitor on Telemetry. - PT/OT cont - Continue neurochecks. (2) Alcohol use Comment: - As per HPI, patient drinks 4 beers/day. - No signs of withdrawal at this time. (3) Atrial flutter Comment: cont metoprolol to obtain better rate control. - Anticoagulation contraindicated in the setting of acute stroke, but will need it in the future. (4) Elevated troponin Comment: - Secondary to CVA and demand ischemia in the setting of hypertensive emergency. - Echo showed normal EF with no wall motion abnormalities. (5) HTN (hypertension) Comment: better control with metoprolol. (6) Hypertensive urgency Comment: - Present on admission - now resolved. (7) DVT prophylaxis Comment: - D/w Neurology - SQ heparin q12h. Status and Disposition: Inpatient.
[2017-10-22] MEDS ORDERED: Docusate CAP* 100 MG PO PRN (14:24)
[2017-10-23] MEDS: Polyethylene Glycol 3350* 17 GM PACKET PO SCH (07:56)
[2017-10-23] MEDS: Metoprolol Succinate XL TAB* 25 MG PO SCH (08:48)
[2017-10-23] MEDS: Thiamine TAB* 100 MG TAB PO SCH (08:48)
[2017-10-23] MEDS: Atorvastatin* 80 MG TAB PO SCH (08:48)
[2017-10-23] MEDS: Multivitamins/Minerals TAB PO SCH (08:49)
[2017-10-23] MEDS: Heparin VIAL(*) 5000 UNITS/ML VIAL (FIVE THOUSAND) SUBCUT SCH (08:49)
[2017-10-23] MEDS: Folic Acid TAB* 1 MG PO SCH (08:49)
[2017-10-23] MEDS: Clopidogrel TAB* 75 MG PO SCH (08:49)
[2017-10-23] MEDS: Aspirin 81 mg CHEW TAB* 81 MG TAB.CHEW PO SCH (08:49)
[2017-10-23] MEDS ORDERED: amLODIPine TAB* 5 MG PO SCH (09:00)
[2017-10-23 13:18] VITALS: BP 135/61
--- NOTE | 2017-10-23 13:46 | DS ---
CC: [facility]; Dr. Hudson; Dr. Jaime. DISCHARGE SUMMARY: DATE OF ADMISSION: 10/19/17 DATE OF DISCHARGE: 10/23/17 PRIMARY CARE PROVIDER: None. DISCHARGE DIAGNOSES: 1. 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 2. Left internal carotid artery occlusion. 3. Left vertebral artery high-grade stenosis. SECONDARY DIAGNOSES: 1. History of alcohol abuse. 2. New diagnosis of atrial flutter during the hospital stay. MEDICATIONS AT DISCHARGE: Include: 1. Amlodipine 5 mg daily. 2. Aspirin 81 mg daily. 3. Lipitor 80 mg daily. 4. Plavix 75 mg daily. 5. Folate 1 mg daily. 6. Metoprolol succinate 25 mg daily. 7. Multivitamin 1 tablet daily. 8. MiraLAX 17 g twice a day p.r.n. 9. Thiamine 100 mg daily. CONSULTATIONS DURING THE HOSPITAL STAY: Included Dr. Hudson from Neurology. LABORATORY DATA AND STUDIES PERFORMED DURING THE HOSPITAL STAY: Included: The patient's chest x-ray obtained on 10/19/17. Impression: "Low lung volume, small bibasilar infiltrates." Head CTA obtained on 10/19/17. Impression: "Occlusion of the left internal carotid artery as described with occlusion of the proximal left middle and anterior cerebral arteries. There is reconstitution of both arteries as described. There was asymmetric decreased perfusion of the left frontal, parietal, and temporal lobe and loss of domingo white differentiation suggestive of a large acute nonhemorrhagic infarct. High-grade stenosis of the proximal left vertebral artery. The right vertebral artery is extremely small in caliber and appears to be occluded distally. Moderate grade stenosis of the proximal bibasilar artery." CT angiogram of the neck showed right carotid artery stenosis of 30% and left carotid complete occlusion of the internal carotid artery beginning at the carotid bulb and extending as above mentioned. Elbow x-ray. Impression: "Limited study. No fracture is seen." Brain MRI obtained on 10/20/17. Impression: Findings most consistent with a small to moderate size nonhemorrhagic infarct involving the left temporal and frontal lobes." Transthoracic echocardiogram obtained on 10/19/17 showed EF of 55% to 60% with moderate concentric LVH. Elevated left ventricular end-diastolic pressures. No patent foramen ovale was noted. HOSPITALIZATION COURSE: Sabino Higgins is an 87-year-old male who did not seek any medical care for many years and who presented to the hospital with altered mentation. Apparently, at baseline the patient goes to [employer] and lives alone. There was no past medical history. Has history of drinking several beers a day . His surrogate decision maker was his friend, Angie. As mentioned above, the patient was noted to have altered mental status on admission and mixed aphasia was noted. He was noted to have an acute left frontal and temporal CVA, likely originated from left internal carotid artery occlusion. The patient also was noted to have a new diagnosis of A-flutter. Dr. Hudson saw the patient in consultation. Due to significant carotid artery disease, the patient was not a candidate for surgery, was placed on dual antiplatelet treatment. At this point, I am in the process of confirming with Dr. Jaime, the neurologist, who is rounding today of the plan of the patient' s anticoagulation at discharge. It is planned that at some point, the patient is going to require another CT of the head to follow up his stroke and then anticoagulation should be started. At that point, at least 1 of the antiplatelet agents should be stopped. During the patient hospital stay, he continued to have mixed aphasia, but he ambulated rather well. The day prior to his hospital stay, the patient's Damon catheter was discontinued and he was able to void without any problems. He was deemed to be a good candidate for short-term rehabilitation and he was going to be discharged to [facility] for further rehabilitation. Please also note that on presentation, the patient had elevated blood pressures and he was started on Norvasc and metoprolol succinate. PHYSICAL EXAMINATION: At the time of discharge, blood pressure of 156/90, heart rate of 68 and regular, respiratory rate of 19, oxygen saturation 98% on room air, and temperature 97.6. General: The patient is a pleasant 87-year-old male who has significant mixed aphasia. He is able to follow commands when they are shown to him, but he is not able to follow most of the verbal commands. He has difficulty naming objects. HEENT: Head atraumatic and normocephalic. Eyes, pupils are equal and reactive to light and accommodation. Oropharynx clear. Mucosa moist. Neck: Supple. No JVD, no bruits bilaterally. Cardiovascular: Regular rate and rhythm. No murmur. Respiratory: Clear to auscultation bilaterally. Abdomen: Soft and nontender. Bowel sounds present in all 4 quadrants. Extremities: There is no edema. Pulses are +2 bilaterally. No clubbing or cyanosis. Neuro Evaluation: Mixed aphasia noted. Speech is rather clear. Otherwise, motor strength is 5/5 bilaterally. LABORATORY DATA: Remaining laboratory data showed: On 10/20/17, sodium of 136, potassium of 4.1, chloride 107, carbon-dioxide 20, BUN 21, creatinine 1.1. The patient's troponins were mildly elevated during the hospital stay with peak one of 0.07, likely due to demand ischemia. Triglycerides were 67, cholesterol 1277, LDL of 110, HDL of 53, vitamin B12 was 394 and TSH was 4.23 at admission. Hemoglobin A1c was noted to 5.6 on 10/20/17. Urinalysis was grossly unremarkable, but urine cultures were obtained nevertheless and those were negative. Please note that this is a short summary of the patient's hospitalization, please refer to further medical records for details. The patient is being discharged to [facility] for rehab. TIME SPENT: Approximately 45 minutes was spent on the patient's discharge. [id number]/[facility] #: [id number] [facility] CENTERMode
--- NOTE | 2017-10-23 22:09 | DS ---
CC: Longterm; Dr. Jaime DISCHARGE SUMMARY: ADDENDUM: In regards to the patient's anticoagulation for atrial flutter. We discussed the case with Dr. Jaime. At this point, recommendation is to repeat a CT of the brain with no contrast in 2 to 3 days to rule out intracranial bleed. If there is no bleed, the patient is to be anticoagulated for his atrial flutter and cardioembolic stroke prevention with either Coumadin or Eliquis. The patient has mild renal insufficiency and Eliquis will be more appropriate comparing with other new anticoagulants. The patient also can be started on Coumadin and I do not believe bridging is necessary at this point. Please note that the patient's stroke was due to carotid artery disease and not cardioembolism. Nevertheless, due to atrial flutter that was incidentally noted during the patient's admission, anticoagulation for cardioembolic stroke prevention will be needed as mentioned above. [id number]/[facility] #: [id number] MTDD
--- NOTE | 2017-10-23 22:26 | PN ---
PROGRESS NOTE: DATE OF VISIT: 10/23/17 PATIENT OF: Dr. Conroy, having been seen previously by Dr. Hudson from Neurology. HISTORY: Dr. Conroy asked me to see to get the plan for anticoagulation. Spoke to Sabino and his , they feel his speech is coming along nicely, but he still has a speech deficit. He has no other complaints. MEDICATIONS: Include: 1. Thiamine 100 mg daily. 2. Metoprolol 25 mg daily. 3. Hydralazine 5 mg p.r.n. IV. 4. Colace 100 mg b.i.d. p.r.n. 5. Plavix 75 mg daily. 6. Lipitor 80 mg daily. 7. Aspirin 81 mg daily. 8. Norvasc 5 mg daily. PHYSICAL EXAMINATION: Temperature 97.6, pulse 68, respirations 17, blood pressure 156/90. He is alert, knows his name and age. His speech is hesitant, has some difficulty naming things. His understanding appears good. He has no facial weakness. No field cut. Cranial nerves were intact. Strength 5/5. There is no pronator drift. Chest: Clear. Cardiovascular: Regular rate and rhythm. Abdomen: Soft with positive bowel sounds. DIAGNOSTIC STUDIES: I reviewed his MRI scan, which showed a moderate left frontotemporal stroke. He had a CTA, which showed left carotid occlusion, other significant stenosis. ASSESSMENT/PLAN: His LDL was above 100 and he has been started on statin, and he has been on aspirin and Plavix now. I discussed with Dr. Conroy that since he has complete carotid occlusion, his stroke in that distribution would be from his vascular stenosis rather than from an embolic event. She notes that he needs to be anticoagulated due to the Aflutter independent of neurological reasons and I recommended to wait 5 to 7 days following the stroke and to repeat a CT scan before beginning anticoagulation of their choice. Once he is on anticoagulation, he should be on just a single antiplatelet agent and the statin should be continued. Thank you for sharing his case. [id number]/[facility] #: [id number] JOHN
== END 2017-10-23 12:50 | DRG 65 ==
LOC: MEDTELE 22:15
PROVIDERS: ADMIT Student in an Organized Health Care Education/Training Program; ATTEND Internal Medicine
DX: I63.232 Cerebral infarction due to unspecified occlusion or stenosis of left carotid arteries (principal); I48.92 Unspecified atrial flutter; R47.01 Aphasia; I65.02 Occlusion and stenosis of left vertebral artery; F10.11 Alcohol abuse, in remission; I45.10 Unspecified right bundle-branch block; R74.8 Abnormal levels of other serum enzymes; F10.10 Alcohol abuse, uncomplicated; I10 Essential (primary) hypertension; I16.0 Hypertensive urgency
CPT/HCPCS: 36415; 70496; 70498; 70551; 71045; 80048; 80061; 80076; 81003; 81015; 82140; 82550; 82607; 83036; 83735; 83880; 84443; 84484; 85025; 85610; 87086; 93005; 93306; A9270-GY; J1644; Q9967

== ENCOUNTER 2019-05-07 09:42 | Inpatient (IN) | payer MEDICARE, MEDICAID ==
[2019-05-07] MEDS ORDERED: Acetaminophen TAB* 325 MG PO PRN (13:31)
[2019-05-07] MEDS ORDERED: Zosyn per Pharmacy* NOTE FOLLOW UP SCH (15:00)
[2019-05-07] MEDS: Piperacillin/Tazobac ADVAN(*) 3.375 GM in NS 0.9% 100 ML* 100 ML IVPB ONE ×2 (15:58→16:32)
--- NOTE | 2019-05-07 16:37 | HP ---
CC: Dr. Ellington * HISTORY AND PHYSICAL: DATE OF ADMISSION: 05/07/19 PROVIDER: Marlen Glasgow NP PRIMARY CARE PROVIDER: Dr. Ellington. ATTENDING PHYSICIAN WHILE IN THE HOSPITAL: Dr. Aneta Hines * (dictated by Marlen Glasgow NP). CHIEF COMPLAINT: 1. Leg pain. 2. Open wounds. 3. Cellulitis. HISTORY OF PRESENT ILLNESS: Mr. Higgins is an 89-year-old gentleman who initially presented to [facility] and was admitted at [facility] on 05/05/19 for cellulitis of his bilateral lower extremities. He was seen at his primary care doctor's office on the day of admission and was noted to have worsening wounds over the past few days and a new open area on his left lower leg. Due to this, the patient was sent to [facility] to be admitted. During his hospitalization at [place], the patient was treated for cellulitis of his bilateral lower extremities with Zosyn IV q.8 hours. He had a venous Doppler of his bilateral lower extremities, which showed occluded left superficial femoral and popliteal arteries with reconstitution of the posterior tibial artery, dampened waveforms suggestive of at least mild flow reduction in the right lower extremity arterial system. Due to these findings and the patient's chronic peripheral vascular disease, it was recommended that he be transferred to [facility] for evaluation by Dr. Her for possible intervention of his occluded femoral artery to promote healing to his lower leg wounds, so the patient was accepted for transfer from [facility] for a vascular consult. PAST MEDICAL HISTORY: 1. Hyperlipidemia. 2. Hypertension. 3. CVA. 4. Osteoarthritis. 5. Chronic cellulitis, bilateral lower extremities. 6. Left toe osteomyelitis. PAST SURGICAL HISTORY: None. HOME MEDICATIONS: 1. Aspirin 81 mg p.o. daily. 2. Metoprolol 25 mg p.o. daily. 3. Yeast 250 mg cap p.o. daily. 4. Hydrochlorothiazide 12.5 mg p.o. daily. 5. Atorvastatin 80 mg p.o. daily. 6. Acetaminophen 1000 mg every 6 hours as needed for pain. 7. Bismuth tribromophenate petroleum 1 pad daily to open wounds. ALLERGIES: No known drug allergies. FAMILY HISTORY: The patient is unable to provide. SOCIAL HISTORY: The patient reports that he quit smoking in 1969. Prior to that , he smoked for approximately 24 years 1 to 2 packs per day. He denies any alcohol or illicit drug use. 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 He uses a walker for ambulation. Surrogate decision maker in the event he is unable to make his own decisions is his friend , Angie. REVIEW OF SYSTEMS: He denies any fever or unintended weight loss, chest pain or edema, cough, hemoptysis, shortness of breath. No nausea, vomiting, diarrhea , hematuria, dysuria. He does report frequency that is chronic with urination. Denies any focal weakness, sensory loss, visual complaints. He does report occasional difficulty swallowing. Denies any arthralgias, myalgias. He does report open sore to his left lower leg, base of his left great toe and right great toe and redness to his right lower extremity. Denies any psychosis or anxiety. PHYSICAL EXAMINATION GENERAL: At this time, Mr. Higgins is an 89-year-old male. He is alert and oriented, resting in his hospital bed. He is in no acute distress. VITAL SIGNS: Temperature was 98.0, respirations 18, O2 saturation 100%. HEENT: Head is atraumatic, normocephalic. Eyes: EOMs are intact. Sclerae anicteric and not pale. Oral mucosa is moist. NECK: Supple. LUNGS: Diminished bilaterally. No wheezes, rales, or rhonchi. CARDIAC: S1, S2. Regular rate and rhythm. No rubs or gallops. ABDOMEN: Soft and nontender. Bowel sounds are present x4. EXTREMITIES: He is able to move all 4 extremities. He does have necrotic area noted to the base of his right great toe. He has an open ulceration noted to his left lower leg and a necrotic area noted to the left great toe. NEUROLOGIC: He is awake, alert, oriented x3. Speech is clear. Thought process is intact. There are no gross focal deficits. SKIN: The patient does have an open ulceration noted to his left lower leg, necrotic area noted to the base of the left great toe and discoloration noted to the right great toe. He does have redness noted to his right lower extremity. DIAGNOSTIC STUDIES/LAB DATA: Labs from [facility] from 05/07/19: WBCs were 4.96, RBCs 4.03, hemoglobin 12.7, hematocrit was 39.7, platelet count was 128. INR was 1.15, PTT was 29.6. Sodium was 143, potassium 4.2, chloride 107, carbon dioxide was 27, anion gap was 9, BUN was 23, creatinine 1.4, calcium was 8.6. Urine from 05/05/19 was within normal limits with a trace of leukocyte esterase, specific gravity 1.015, and pH was 7.0. He does have a venous arterial Doppler study of bilateral lower extremities, which showed occluded left superficial femoral and popliteal arteries with reconstitution of the posterior tibial artery, dampened waveforms suggesting at least mild flow reduction in the right lower extremity arterial system. ASSESSMENT AND PLAN: Mr. Higgins is an 89-year-old male with a past medical history significant for hypertension, hyperlipidemia, history of cerebrovascular accident, osteoarthritis, history of chronic cellulitis to bilateral lower extremities and open wounds, history of osteomyelitis to the base of the left great toe, who was transferred from [facility] for a vascular surgery consultation. He will be admitted for: 1. Cellulitis/ Left lower leg wound. The patient was on Zosyn at [facility]. We will continue him on Zosyn 3.375 g IV q.8 hours. He does have an open ulceration noted to his left lower leg, has a necrotic area noted to the base of the left great toe as well as a necrotic area noted to the tip of the right great toe. He does have redness noted to his right lower leg that is warm to touch. I will add a CRP on to tomorrow morning's lab work. He has had no leukocytosis throughout his admission at [facility]. We will repeat a CBC in the a.m. and dose his Zosyn per the pharmacy. 2. Peripheral vascular disease. The patient did have an arterial Doppler done at [facility] that showed occluded left superficial femoral and popliteal arteries with reconstitution to the posterior tibial artery. We will consult Dr. Her for further recommendations. The patient did receive a full dose of Lovenox 80 mg at [facility] at 11:[address] Her recommended heparin drip to maintain PTT between 40-60. Will start this evening at 2300 when next Lovenox dose is due. 3. Hyperlipidemia. The patient will continue on atorvastatin 80 mg p.o. daily. 4. Hypertension. The patient will be placed on his home dose of metoprolol 25 mg p.o. daily. I will hold his hydrochlorothiazide. 5. History of cerebrovascular accident. The patient will be continued on aspirin 81 mg and clopidogrel [address] Hre and we will continue his statin therapy at 80 mg p.o. daily. 6. History of osteomyelitis left great toe. Patient is noted to have necrotic tissue to the lateral aspect of the left great toe base. There is no drainage, erythema or swelling. Patient has refuse amputation of the left great toe. will continue to monitor. 7. FEN: He can have a regular diet. 8. Code status: He is a DNR/DNI. 9. DVT prophylaxis: The patient did have Lovenox full strength 80 mg. TIME SPENT: Time spent on this admission was 60 minutes, greater than half that time was spent at the bedside reviewing events leading thus far to his hospitalization, performing physical exam, and reviewing my plan of care. I have discussed this with my attending, Dr. Aneta Hines; she is in agreement with my plan. MARLEN GLASGOW, ESME [id number]/[facility] #: [id number] JOHN
[2019-05-07] MEDS ORDERED: oxyCODONE/Acetamin 5/325 MG* TAB PO PRN (20:13)
[2019-05-07] MEDS ORDERED: Gabapentin CAP(*) 300 MG PO SCH ×2 (21:00)
[2019-05-07] MEDS ORDERED: Heparin DRIP 25,000 UNITS(*) 25,000 UNITS/500 ML BAG IV SCH ×2 (21:00→23:00)
[2019-05-07] MEDS: Gabapentin CAP(*) 100 MG PO SCH (22:38)
[2019-05-07] MEDS: oxyCODONE/Acetamin 5/325 MG* TAB PO PRN (22:38)
[2019-05-07] MEDS: Polyethylene Glycol 3350* 17 GM PACKET PO SCH (22:42)
[2019-05-07] MEDS: ZOSYN 3.375 GM Q8H per EXTENDED INFUSION IVPB SCH ×2 (22:42)
[2019-05-08] MEDS: ZOSYN 3.375 GM Q8H per EXTENDED INFUSION IVPB SCH ×6 (05:48→21:41)
[2019-05-08] MEDS: oxyCODONE/Acetamin 5/325 MG* TAB PO PRN ×3 (05:50→18:47)
[2019-05-08 05:59] LABS: ABS Basophils 0.1 10^3/ul (0-0.2); ABS Eosinophils 0.4 10^3/ul (0-0.6); ABS Lymphocytes 1.2 10^3/ul (1.0-4.8); ABS Monocytes 0.9 10^3/ul (0-0.8); ABS Neutrophils 3.1 10^3/ul (1.5-7.7); Eosinophil % 6.3 %; Hematocrit 41 % (42-52); Hemoglobin 14.4 g/dL (14.0-18.0); Lymphocyte % 21.4 %; Mean Corpuscular HGB Conc 36 g/dL (31-36); Mean Corpuscular Hemoglobin 33 pg (27-31); Mean Corpuscular Volume 94 fL (80-94); Mean Platelet Volume 7.7 fL (7.4-10.4); Nucleated Red Blood Cells % 0.1; Platelet Count 133 10^3/uL (150-450); Red Blood Count 4.33 10^6 /uL (4.18-5.48); Red Cell Distribution Width 14 % (10-15); White Blood Count 5.6 10^3/uL (3.5-10.8)
[2019-05-08 06:14] LABS: BUN/Creatinine Ratio 14.5 (8-20); Calcium 9.5 mg/dL (8.6-10.3); EGFR African American 58.7 (>60); EGFR African American 61.3 (>60); EGFR Non-African American 48.5 (>60); EGFR Non-African American 50.6 (>60)
[2019-05-08] MEDS ORDERED: Heparin DRIP 25,000 UNITS(*) 25,000 UNITS/500 ML BAG IV SCH (06:57)
[2019-05-08] MEDS: Polyethylene Glycol 3350* 17 GM PACKET PO SCH ×2 (09:42→21:43)
[2019-05-08] MEDS: Metoprolol Succinate XL TAB* 25 MG PO SCH (09:43)
[2019-05-08] MEDS: Clopidogrel TAB* 75 MG PO SCH (09:43)
[2019-05-08] MEDS: Thiamine TAB* 100 MG TAB PO SCH (09:43)
[2019-05-08] MEDS: Multivitamins/Minerals TAB PO SCH (09:43)
[2019-05-08] MEDS: Folic Acid TAB* 1 MG PO SCH (09:43)
[2019-05-08] MEDS: Atorvastatin* 80 MG TAB PO SCH (09:43)
[2019-05-08] MEDS: Gabapentin CAP(*) 100 MG PO SCH ×3 (09:44→21:43)
[2019-05-08] MEDS: amLODIPine TAB* 5 MG PO SCH (09:44)
[2019-05-08] MEDS: Aspirin 81 mg CHEW TAB* 81 MG TAB.CHEW PO SCH (09:44)
--- NOTE | 2019-05-08 11:30 | CONSULT ---
Consult Consult: Date of Service: 05/08/19 History & Physical Patient: GEETA HIGGINS/Age: 10 1930 89 Admission Date: 05/07/19 Requesting Provider: Marlen Glasgow NP PRIMARY CARE PROVIDER: Dr. Ellington ([facility]) CHIEF COMPLAINT: 1. Leg pain. 2. Open wounds. 3. Cellulitis. 4. Femoropopliteal arterial occlusions HISTORY OF PRESENT ILLNESS: Mr. Higgins is an 89-year-old gentleman who initially presented to [facility] and was admitted at [facility] on 05/05/19 for cellulitis of his bilateral lower extremities. He was seen at his primary care doctor's office on the day of admission and was noted to have worsening wounds over the past few days and a new open area on his left lower leg. The patient denies symptoms characteristic of rest pain, but describes aching pain in the left leg when he is laying in bed at night for at least the past 2 weeks. He is uncertain how long he has wounds on his feet. He had an arterial Doppler of his bilateral lower extremities, which showed occluded left superficial femoral and popliteal arteries with reconstitution of the posterior tibial artery, dampened waveforms suggestive of at least mild flow reduction in the right lower extremity arterial system. Due to these findings and the patient's chronic peripheral vascular disease, it was recommended that he be transferred to [facility] for angiography. PAST MEDICAL HISTORY: 1. Hyperlipidemia. 2. Hypertension. 3. CVA. 4. Osteoarthritis. 5. Chronic cellulitis, bilateral lower extremities. 6. Left toe osteomyelitis. HOME MEDICATIONS: 1. Aspirin 81 mg p.o. daily. 2. Metoprolol 25 mg p.o. daily. 3. Yeast 250 mg cap p.o. daily. 4. Hydrochlorothiazide 12.5 mg p.o. daily. 5. Atorvastatin 80 mg p.o. daily. 6. Acetaminophen 1000 mg every 6 hours as needed for pain. 7. Bismuth tribromophenate petroleum 1 pad daily to open wounds. ALLERGIES: No known drug allergies. FAMILY HISTORY: [place] SOCIAL HISTORY: The patient reports that he quit smoking in 1969. Prior to that , he smoked for approximately 24 years 1 to 2 packs per day. He denies any alcohol or illicit drug use. 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 He uses a walker for ambulation. Surrogate decision maker in the event he is unable to make his own decisions is his friend , Angie. REVIEW OF SYSTEMS: He denies any fever or unintended weight loss, chest pain or edema, cough, hemoptysis, shortness of breath. No nausea, vomiting, diarrhea, hematuria, dysuria. He does report frequency that is chronic with urination. Denies any focal weakness, sensory loss, visual complaints. He does report occasional difficulty swallowing. Denies any arthralgias, myalgias. He does report open sore to his left lower leg, base of his left great toe and right great toe and redness to his right lower extremity. Denies any psychosis or anxiety. PHYSICAL EXAMINATION Selected Entries 05/08/19 07:59 Temperature 97.6 F Temperature Temporal Artery Source Scan Pulse Rate 51 Respiratory 18 Rate Blood Pressure 169/76 (mmHg) Blood Pressure 107 Mean O2 Sat by Pulse 99 Oximetry GENERAL: He is alert and oriented, resting in his hospital bed. He is in no acute distress. Patient is hard of hearing and required me to shout. RRR CTAB 1+ pulses at bilateral SHREDDING MACHINE TENDER, weaker on the left No discernible bruit can be heard 1+ right popliteal artery and right WILDLIFE ECOLOGY PROFESSOR cannot palpate right DPA left pop, WILDLIFE ECOLOGY PROFESSOR and SOFIYA are not palpable black eschars on the bilateral big toes left lower leg and ankle is wrapped in sterile gauze RELEVANT LABS Laboratory Tests 05/08/19 05/08/19 05/08/19 05:43 05:43 05:43 WBC 5.6 RBC 4.33 Hgb 14.4 Hct 41 L APTT 109.9 H* BUN 20 Creatinine 1.33 H Est GFR (Non-Af Amer) 50.6 RELEVANT IMAGING: I have personally reviewed the arterial duplex of the lower extremities acquired at [facility] on 05/06/2019. Left: There is occlusion at the proximal right superficial femoral artery with reconstituted flow more distally. There is an occlusion more distally in the right popliteal artery as well. Right: In-line flow appears to be present throughout the right superficial femoral and popliteal arteries. Assessment: 89 year old man [id number]-right lower leg wounds and cellulitis in the presence of vasculopathy. Arterial duplex depicts at least left SFA and popliteal artery occlusions and I suspect there is aortoiliac flow limiting disease as well based on my physical exam. The patient will have a better chance of healing his wounds if in-line arterial flow can be re-established. Plan: 1. The patient has been consented for pelvic and lower extremity arteriography. This will guide possible endovascular revascularization. If the patient's disease is beyond the scope of endovascular therapy then the angiography will serve as high quality diagnostic imaging for the purpose of vascular surgery. 2. Continue heparin gtt with goal PTT 40-60. 3. Angiography planned for 05/08/19.
--- NOTE | 2019-05-08 14:32 | PN ---
Subjective Date of Service: 05/08/19 Interval History: patient is resting in his hospital bed. reports that he had pain in his left leg overnight that is now resolved. Denies any chest pain or shortness of breath. Denies abd pain n/v/d. Denies fever or chills. Family History: Unchanged from Admission Social History: Unchanged from Admission Past Medical History: Unchanged from Admission Objective Active Medications: Acetaminophen (Tylenol Tab*) 650 mg PO Q6H PRN PRN Reason: MILD PAIN or TEMP > 100.4 Last Admin: 05/07/19 15:54 Dose: 650 mg Amlodipine Besylate (Norvasc Tab*) 5 mg PO DAILY [facility] Last Admin: 05/08/19 09:44 Dose: 5 mg Aspirin (Aspirin 81 Mg Chew Tab*) 81 mg PO DAILY [facility] Last Admin: 05/08/19 09:44 Dose: 81 mg Atorvastatin Calcium (Lipitor*) 80 mg PO DAILY [facility] Last Admin: 05/08/19 09:43 Dose: 80 mg Clopidogrel Bisulfate (Plavix Tab*) 75 mg PO DAILY [facility] Last Admin: 05/08/19 09:43 Dose: 75 mg Folic Acid (Folvite Tab*) 1 mg PO DAILY [facility] Last Admin: 05/08/19 09:43 Dose: 1 mg Gabapentin (Neurontin Cap(*)) 100 mg PO TID [facility] Last Admin: 05/08/19 13:18 Dose: 100 mg Piperacillin Sod/Tazobactam (Sod 3.375 gm/ Sodium Chloride) 100 mls @ 25 mls/ hr IVPB Q8H [facility] Last Admin: 05/08/19 13:30 Dose: 25 mls/hr Heparin Sodium/Dextrose (Heparin Drip 25,000 Units(*)) 25,000 units in 500 mls @ 9.5 mls/hr IV PER RATE [facility]; Protocol Metoprolol Succinate (Toprol Xl Tab*) 25 mg PO DAILY [facility] Last Admin: 05/08/19 09:43 Dose: 25 mg Multivitamins/Minerals (Theragran/Minerals Tab*) 1 tab PO DAILY [facility] Last Admin: 05/08/19 09:43 Dose: 1 tab Oxycodone/Acetaminophen (Percocet 5/325 Tab*) 1 tab PO Q4H PRN PRN Reason: PAIN - MODERATE Last Admin: 05/08/19 13:04 Dose: 1 tab Pharmacy Consult (Zosyn Per Pharmacy*) 1 note FOLLOW UP .ZOSYN PER PHARMACY [facility] Polyethylene Glycol/Electrolytes (Miralax*) 17 gm PO 0800,2100 [facility] Last Admin: 05/08/19 09:42 Dose: Not Given Thiamine HCl (Vitamin B-1 Tab*) 100 mg PO DAILY [facility] Last Admin: 05/08/19 09:43 Dose: 100 mg Vital Signs - 8 hr 05/08/19 05/08/19 05/08/19 07:59 09:44 11:10 Temperature 97.6 F 97.5 F Pulse Rate 51 47 Respiratory 18 18 13 Rate Blood Pressure 169/76 137/64 (mmHg) O2 Sat by Pulse 99 99 Oximetry 05/08/19 05/08/19 13:04 13:18 Temperature Pulse Rate Respiratory 13 13 Rate Blood Pressure (mmHg) O2 Sat by Pulse Oximetry Oxygen Devices in Use Now: None Appearance: alert , TEJON , no acute distress Eyes: No Scleral Icterus Ears/Nose/Mouth/Throat: Clear Oropharnyx, Mucous Membranes Moist Neck: NL Appearance and Movements; NL JVP, Trachea Midline Respiratory: Symmetrical Chest Expansion and Respiratory Effort, Clear to Auscultation Cardiovascular: NL Sounds; No Murmurs; No JVD, No Edema Abdominal: NL Sounds; No Tenderness; No Distention Extremities: No Edema, No Clubbing, Cyanosis Skin: No Rash or Ulcers Neurological: Alert and Oriented x 3 Nutrition: Taking PO's Result Diagrams: 05/08/19 05:43 05/08/19 05:43 Assess/Plan/Problems-Billing Assessment: Mr. Higgins is a 89 y.o male with a pmhx of - Patient Problems (1) Cellulitis Current Visit: Yes Status: Acute Code(s): L03.90 - CELLULITIS, UNSPECIFIED SNOMED Code(s): 302702565 Comment: -will continue zosyn (2) Ulcer of leg, chronic Current Visit: Yes Status: Acute Code(s): L97.909 - NON-PRS CHRONIC ULC UNSP PRT OF UNSP LOW LEG W UNSP SEVERITY SNOMED Code(s): 20846697 Comment: - ulcers noted to left lower lateral leg, base of left great toe, tip of the right toe - patient with known occulsion to the left femoral artery- will go for angio tomorrow - heparin ip- Goal ptt 40-[address] Her - Aqua cell and dry dressing to open wounds (3) Occlusion of left femoral artery Current Visit: Yes Status: Acute Code(s): I70.202 - UNSP ATHSCL RESIGHINI ARTERIES OF EXTREMITIES, LEFT LEG SNOMED Code(s): 44045190644118651 Comment: patient with occulsion to the left femoral artery- will go for angio tomorrow - heparin drip- Goal ptt 40-[address] Her (4) HTN (hypertension) Current Visit: No Status: Acute Code(s): I10 - ESSENTIAL (PRIMARY) HYPERTENSION SNOMED Code(s): 78029626 Comment: stable - will continue metoprolol (5) Hx of osteomyelitis Current Visit: Yes Status: Acute Code(s): Z87.39 - PERSONAL HISTORY OF DISEASES OF THE MS SYS AND CONN TISS SNOMED Code(s): 271576015 Comment: Hx of left great toe osteomyelitis - left great toe base with necrotic tissue noted - wound consulted (6) History of CVA (cerebrovascular accident) Current Visit: Yes Status: Acute Code(s): Z86.73 - PRSNL HX OF TIA (TIA), AND CEREB INFRC W/O RESID DEFICITS SNOMED Code(s): 739527351 Comment: -NO acute issues - will continue statin, aspirin and plavix (7) HLD (hyperlipidemia) Current Visit: Yes Status: Acute Code(s): E78.5 - HYPERLIPIDEMIA, UNSPECIFIED SNOMED Code(s): 97411180 Comment: continue lipitor 80mg (8) DVT prophylaxis Current Visit: No Status: Acute Code(s): JRG0768 - SNOMED Code(s): 865919331 Comment: Heparin gtt (9) DNR (do not resuscitate) Current Visit: Yes Status: Acute Status and Disposition: Will discharge when medically stable
[2019-05-09] MEDS: oxyCODONE/Acetamin 5/325 MG* TAB PO PRN ×3 (01:29→20:45)
[2019-05-09] MEDS: ZOSYN 3.375 GM Q8H per EXTENDED INFUSION IVPB SCH ×4 (04:36→19:53)
[2019-05-09 07:28] LABS: Hematocrit 37 % (42-52); Hemoglobin 12.9 g/dL (14.0-18.0); Mean Corpuscular HGB Conc 35 g/dL (31-36); Mean Corpuscular Hemoglobin 33 pg (27-31); Mean Corpuscular Volume 94 fL (80-94); Platelet Count 120 10^3/uL (150-450); Red Blood Count 3.96 10^6 /uL (4.18-5.48); Red Cell Distribution Width 14 % (10-15); White Blood Count 4.7 10^3/uL (3.5-10.8)
[2019-05-09 08:02] LABS: BUN/Creatinine Ratio 17.1 (8-20); Calcium 9.1 mg/dL (8.6-10.3); EGFR African American 63.5 (>60); EGFR Non-African American 52.4 (>60); Potassium 3.8 mmol/L (3.5-5.0)
[2019-05-09] MEDS: Aspirin 81 mg CHEW TAB* 81 MG TAB.CHEW PO SCH (11:25)
[2019-05-09] MEDS: Metoprolol Succinate XL TAB* 25 MG PO SCH (11:25)
[2019-05-09] MEDS: Clopidogrel TAB* 75 MG PO SCH (11:26)
[2019-05-09] MEDS: Multivitamins/Minerals TAB PO SCH (11:26)
[2019-05-09] MEDS: Atorvastatin* 80 MG TAB PO SCH (11:27)
[2019-05-09] MEDS: Folic Acid TAB* 1 MG PO SCH (11:27)
[2019-05-09] MEDS: amLODIPine TAB* 5 MG PO SCH (11:27)
[2019-05-09] MEDS: Thiamine TAB* 100 MG TAB PO SCH (11:27)
[2019-05-09] MEDS: Polyethylene Glycol 3350* 17 GM PACKET PO SCH ×2 (11:30→20:47)
[2019-05-09] MEDS: Gabapentin CAP(*) 100 MG PO SCH ×3 (11:35→20:45)
[2019-05-09] MEDS ORDERED: Vancomycin per Pharmacy* NOTE FOLLOW UP SCH (13:00)
[2019-05-09] MEDS ORDERED: Vancomycin(*) 1,500 MG in NS 0.9% 250 ML* 250 ML IVPB ONE (13:30)
[2019-05-09] MEDS ORDERED: Iodixanol 320 (CONTRAST) 100 ML SDV ONE (15:15)
[2019-05-09] MEDS ORDERED: Heparin 2 UNITS/ML IVPREMIX* 2,000 ML IV ONE (15:15)
[2019-05-09] MEDS ORDERED: Lidocaine 1% INJ* 10 MG/ML 30 ML SDV ONE (15:15)
[2019-05-09] MEDS ORDERED: fentaNYL* 50 MCG/ML 2 ML VIAL (100 MCG VIAL) ONE (15:29)
[2019-05-09] MEDS ORDERED: Midazolam* 1 MG/ML 5 ML VIAL (5 MG) ONE (15:29)
--- NOTE | 2019-05-09 15:39 | CONS ---
CONSULTATION REPORT: DATE OF CONSULT: 05/09/19 REQUESTING PHYSICIAN: Dr. Hines. CONSULTING SERVICE: Infectious Disease. REASON FOR CONSULT: Leg wound. IMPRESSION: 1. Bilateral lower extremity wounds, now with a superficial left lateral wound , looks like an abrasion or a ruptured bulla, had grown MRSA and acinetobacter with slight cellulitis. Staph is the most likely pathogen. 2. Bilateral non-pressure wounds over the left and right first metatarsophalangeal, medial forefoot with small eschar that are chronic and improving per the patient's family. 3. Peripheral vascular disease, awaiting further evaluation. 4. History of stroke. RECOMMENDATIONS: Continue vancomycin. We will stop Zosyn, follow his foot wounds, await the angiography results. There is nothing that suggests osteomyelitis at this point. HISTORY OF PRESENT ILLNESS: This is an 89-year-old man with bilateral foot wounds and he has been following with the wound clinic at [facility] since August 2018. Per the patient's family, they have been improving slowly over time, especially in the last couple of months. They are both on the medial forefoot on the left and right feet. He has had frequent admissions to [facility] for left leg cellulitis and most recently it has been the right. He had a few days of IV antibiotics, was transferred here because of the wounds and the vascular study suggesting some impaired flow. He was transferred from [facility] on 05/07/19. Wound culture on the left leg on 05/05/19 grew acinetobacter and MRSA. The wound on the right leg grew Staph aureus that is MRSA negative. There is a little bit of redness around the left lateral leg wound that showed up about in the last week or so per the patient and family. PAST MEDICAL HISTORY: 1. History of CVA. 2. Hyperlipidemia. 3. Hypertension. 4. Osteoarthritis. 5. Recurrent cellulitis. 6. Hearing impaired. ALLERGIES: No known drug allergies. MEDICATIONS: 1. Tylenol. 2. Amlodipine. 3. Aspirin. 4. Lipitor. 5. Plavix. 6. Folic acid. 7. Gabapentin. 8. Heparin infusion. 9. Metoprolol. 10. Oxycodone as needed. 11. Zosyn 3.375 g IV every 8 hours by extended infusion. 12. Polyethylene glycol. 13. Thiamine. 14. Vancomycin. SOCIAL HISTORY: Lives in [facility]. Pet dogs at home, probably not licking at the wounds. He is a retired see. No alcohol or injection drug use. FAMILY HISTORY: Unknown. REVIEW OF SYSTEMS: All negative except as noted above to a 12-point review of systems. PHYSICAL EXAM: Vital Signs: Temperature 36.5, heart rate 50, respiratory rate 14, blood pressure 182/77, oxygen saturation 97% on room air. In general, he is awake, not in distress. Neurologic: He is hard of hearing. Answers questions appropriately. HEENT: There is no conjunctival hemorrhage. Oropharynx without lesions. Neck is supple without mass. Heart is regular rate and rhythm without murmurs, rubs, or gallops. Lungs are clear to auscultation bilaterally. Abdomen: Soft, nontender, nondistended. There are bowel sounds present. Skin: There is no rash or splinter hemorrhage. Musculoskeletal: There is no spine tenderness to palpation. Bilateral feet are warm. There are nonpalpable dorsalis pedis pulses. Over the medial forefoot over the MTP joint on the left and right feet, there are small eschar without surrounding erythema. On the left lower lateral leg, there is a linear superficial abrasion with slight surrounding erythema, no purulent drainage. LABORATORY DATA: White blood cell count 4.7, hemoglobin 12.9, platelets 120. Creatinine 1.2. CRP 10. Please see impression and recommendations outlined above. Thanks for asking me to see Mr. Higgins in consultation. [id number]/[facility] #: [id number] JOHN
[2019-05-09] MEDS ORDERED: Iohexol 350 (CONTRAST) 200 ML MDV IV ONE (15:54)
[2019-05-09] MEDS ORDERED: hydrALAZINE IV* 20 MG/ML VIAL ONE (15:57)
--- NOTE | 2019-05-09 16:17 | PN ---
Subjective Date of Service: 05/09/19 Interval History: HOSPITALIST PROGRESS NOTE Patient seen and examined at bedside. Care reviewed and d/w Mable Bright RN. He offers no new complaints today. Family History: Unchanged from Admission Social History: Unchanged from Admission Past Medical History: Unchanged from Admission Objective Active Medications: Acetaminophen (Tylenol Tab*) 650 mg PO Q6H PRN PRN Reason: MILD PAIN or TEMP > 100.4 Last Admin: 05/07/19 15:54 Dose: 650 mg Amlodipine Besylate (Norvasc Tab*) 5 mg PO DAILY [facility] Last Admin: 05/09/19 11:27 Dose: 5 mg Aspirin (Aspirin 81 Mg Chew Tab*) 81 mg PO DAILY [facility] Last Admin: 05/09/19 11:25 Dose: 81 mg Atorvastatin Calcium (Lipitor*) 80 mg PO DAILY [facility] Last Admin: 05/09/19 11:27 Dose: 80 mg Clopidogrel Bisulfate (Plavix Tab*) 75 mg PO DAILY [facility] Last Admin: 05/09/19 11:26 Dose: 75 mg Folic Acid (Folvite Tab*) 1 mg PO DAILY [facility] Last Admin: 05/09/19 11:27 Dose: 1 mg Gabapentin (Neurontin Cap(*)) 100 mg PO TID [facility] Last Admin: 05/09/19 11:35 Dose: 100 mg Heparin Sodium/Dextrose (Heparin Drip 25,000 Units(*)) 25,000 units in 500 mls @ 9.5 mls/hr IV PER RATE [facility]; Protocol Last Admin: 05/09/19 00:15 Dose: 12.5 mls/hr Metoprolol Succinate (Toprol Xl Tab*) 25 mg PO DAILY [facility] Last Admin: 05/09/19 11:25 Dose: 25 mg Multivitamins/Minerals (Theragran/Minerals Tab*) 1 tab PO DAILY [facility] Last Admin: 05/09/19 11:26 Dose: 1 tab Oxycodone/Acetaminophen (Percocet 5/325 Tab*) 1 tab PO Q4H PRN PRN Reason: PAIN - MODERATE Last Admin: 05/09/19 11:23 Dose: 1 tab Pharmacy Consult (Vancomycin Per Pharmacy*) 1 note FOLLOW UP .VANC PER PHARMACY [facility]; Protocol Pharmacy Consult (Vancomycin Random Level*) 1 note FOLLOW UP 0600 ONE Stop: 05/10/19 06:01 Polyethylene Glycol/Electrolytes (Miralax*) 17 gm PO 0800,2100 [facility] Last Admin: 05/09/19 11:30 Dose: Not Given Thiamine HCl (Vitamin B-1 Tab*) 100 mg PO DAILY [facility] Last Admin: 05/09/19 11:27 Dose: 100 mg Vital Signs - 8 hr 05/09/19 05/09/19 05/09/19 11:04 11:23 11:35 Temperature 97.7 F Pulse Rate 49 Respiratory 14 20 20 Rate Blood Pressure 182/77 (mmHg) O2 Sat by Pulse 97 Oximetry Oxygen Devices in Use Now: None Appearance: Elderly gentleman lying in bed in NAD Eyes: No Scleral Icterus Ears/Nose/Mouth/Throat: Mucous Membranes Moist Neck: Trachea Midline Respiratory: Symmetrical Chest Expansion and Respiratory Effort, - - BS+ bilaterally with no added sounds Cardiovascular: RRR - Normal S1 and S2 Abdominal: NL Sounds; No Tenderness; No Distention Skin: - - Bilateral LE wounds - bilateral MTP eschars as well as an ulcer to lateral aspect of left leg. No palpable DP pulses Neurological: Alert and Oriented x 3, NL Muscle Strength and Tone - Very MENTASTA Result Diagrams: 05/09/19 05:22 05/09/19 05:22 Assess/Plan/Problems-Billing Assessment: Mr. Higgins is a 89 yo M with PMH of HTN, HLD, CVA, DJD, recurrent LE cellulitis and wounds, who was transferred from [facility] due to celullitis and PVD. - Patient Problems (1) Cellulitis Comment: - Wound culture growing MRSA - d/c Zosyn and continue Vancomycin. - ID input appreciated. - Wound care consult requested with Surgery. (2) PVD (peripheral vascular disease) Comment: - Outpatient arterial doppler showed occluded left superficial femoral artery and popliteal arteries. - Dr Her input appreciated - continue heparin drip and plan for angiography today. - Continue Aspirin, Clopidogrel, Atorvastatin. (3) HLD (hyperlipidemia) Comment: - Continue Atorvastatin. (4) HTN (hypertension) Comment: - Trending up. - Increase Amlodipine and continue Metoprolol. (5) DVT prophylaxis Comment: - Heparin drip. (6) DNR (do not resuscitate) Status and Disposition: Inpatient.
[2019-05-09] MEDS ORDERED: amLODIPine TAB* 5 MG PO ONE (16:31)
[2019-05-09] MEDS: NS 0.9% 1000 ML** 1,000 ML IV SCH (21:46)
[2019-05-10] MEDS ORDERED: Vancomycin Random Level* NOTE FOLLOW UP ONE (06:00)
[2019-05-10] MEDS: NS 0.9% 1000 ML** 1,000 ML IV SCH ×2 (06:06→15:36)
[2019-05-10 06:14] LABS: ABS Basophils 0.1 10^3/ul (0-0.2); ABS Eosinophils 0.2 10^3/ul (0-0.6); ABS Lymphocytes 0.8 10^3/ul (1.0-4.8); ABS Monocytes 0.8 10^3/ul (0-0.8); ABS Neutrophils 4.6 10^3/ul (1.5-7.7); Eosinophil % 3.5 %; Hematocrit 40 % (42-52); Hemoglobin 13.8 g/dL (14.0-18.0); Lymphocyte % 11.8 %; Mean Corpuscular HGB Conc 35 g/dL (31-36); Mean Corpuscular Hemoglobin 32 pg (27-31); Mean Corpuscular Volume 94 fL (80-94); Mean Platelet Volume 7.5 fL (7.4-10.4); Nucleated Red Blood Cells % 0.1; Platelet Count 136 10^3/uL (150-450); Red Blood Count 4.26 10^6 /uL (4.18-5.48); Red Cell Distribution Width 15 % (10-15); White Blood Count 6.4 10^3/uL (3.5-10.8)
[2019-05-10] MEDS: oxyCODONE/Acetamin 5/325 MG* TAB PO PRN ×3 (06:19→22:32)
[2019-05-10 06:30] LABS: BUN/Creatinine Ratio 17.1 (8-20); Calcium 9.2 mg/dL (8.6-10.3); EGFR African American 75.5 (>60); EGFR Non-African American 62.4 (>60); Potassium 3.9 mmol/L (3.5-5.0); Vancomycin Random 8.5 mcg/mL
[2019-05-10] MEDS: Polyethylene Glycol 3350* 17 GM PACKET PO SCH ×2 (09:04→21:15)
[2019-05-10] MEDS: amLODIPine TAB* 5 MG PO SCH (09:05)
[2019-05-10] MEDS: Thiamine TAB* 100 MG TAB PO SCH (09:05)
[2019-05-10] MEDS: Folic Acid TAB* 1 MG PO SCH (09:05)
[2019-05-10] MEDS: Clopidogrel TAB* 75 MG PO SCH (09:05)
[2019-05-10] MEDS: Atorvastatin* 80 MG TAB PO SCH (09:05)
[2019-05-10] MEDS: Gabapentin CAP(*) 100 MG PO SCH ×3 (09:06→21:09)
[2019-05-10] MEDS: Multivitamins/Minerals TAB PO SCH (09:06)
[2019-05-10] MEDS: Aspirin 81 mg CHEW TAB* 81 MG TAB.CHEW PO SCH (09:06)
[2019-05-10] MEDS: Metoprolol Succinate XL TAB* 25 MG PO SCH (09:09)
[2019-05-10] MEDS: Vancomycin(*) 1,000 MG in NS 0.9% 250 ML* 250 ML IV SCH ×2 (10:05→21:05)
--- NOTE | 2019-05-10 13:06 | CONS ---
CC: [facility] CONSULTATION REPORT: DATE OF CONSULT: 05/10/19 REFERRING PROVIDER: Dr. Aneta Hines. REASON FOR CONSULTATION: Lower extremity peripheral vascular disease. HISTORY OF PRESENT ILLNESS: Mr. Higgins is an 89-year-old gentleman who was at [facility] Emergency Room where he was admitted for cellulitis of bilateral lower extremities. Apparently, he had seen his primary care doctor on the day of admission and was noted to have worsening wounds. During the hospitalization at [place], he was treated for cellulitis with IV Zosyn and had arterial ultrasound studies done that showed an occluded left superficial femoral popliteal arteries. He was transferred to [facility] for further evaluation. Here he has been started on IV antibiotics. Yesterday, he underwent an arteriogram via the right groin with Dr. Her. At present, there are no operative reports or review of the study, appears to show an occluded left superficial femoral artery at its origin and no runoff shots were obtained on either lower extremity. There appeared to be no proximal disease in the aortoiliac distribution. Surgical consultation was obtained for evaluation. PAST MEDICAL HISTORY: 1. Hyperlipidemia. 2. Hypertension. 3. CVA. 4. History of osteoarthritis. 5. Chronic cellulitis of lower extremities. PAST SURGICAL HISTORY: None. MEDICATIONS: Include: 1. Aspirin. 2. Metoprolol. 3. Yeast extract. 4. Hydrochlorothiazide. 5. Atorvastatin. 6. Acetaminophen. ALLERGIES: No known drug allergies. FAMILY HISTORY: The patient is unable to provide this. He was extremely hard of hearing socially. SOCIAL HISTORY: He quit smoking in 1969. He does not use alcohol or illicit drugs. He lives alone with his dog. He is a retired dey and see. He denies use of illicit drugs. He does use a walker for ambulation. REVIEW OF SYSTEMS: Otherwise as per above. He denies any fever or unintended weight loss. There is no chest pain or shortness of breath. He has no abdominal pain or change in bowel habits. He denies any numbness or tingling in either lower extremity. PHYSICAL EXAMINATION: Temperature 97.2, pulse is 59, blood pressure 132/45. General: He is an elderly male. He is extremely hard of hearing and difficult to communicate with. Lungs are clear to auscultation. Heart has regular rate and rhythm. Abdomen is soft, nondistended. He has weakly palpable bilateral femoral pulses. I appreciate no popliteal or dorsalis pedis or posterior tibial pulses in either leg. He has some mild edema in both lower extremities. There is a rubrous change in the skin color and also chronic venous stasis changes in both lower extremities below the knee. On the right foot, there is an area of very superficial dry gangrene at the base of the great toe without evidence of redness, purulence, abscess, or odor. On the left lower extremity, he appears to have normal sensation to light touch and pinprick, and there is an area over the metatarsal head of the first toe with some patch of dry gangrene without evidence of purulence, redness, or abscess. Along the lateral distal calf, there is an area of approximately 3 cm x 4 cm of a dry eschar, what appears to be a pressure ulceration. There is no redness, purulence, or signs of infection at this point. LABORATORY WORKUP: Included normal white blood cell count. IMPRESSION: Severe peripheral vascular disease of apparently both lower extremities. No interventional options exist. He has apparently had bilateral cellulitis requiring multiple admissions at [facility] and has areas of critical ischemia with dry gangrene on both lower extremities as described above At this point, there is no specific wound care recommended. There are no open wounds. I would not debride the eschar with his level of peripheral vascular disease as well as a protective covering and there are no signs of infection at this point. More important would be protection to both heels and feet while he is hospitalized with heel booties and offloading as much as possible. He will continue his IV antibiotics per ID. Vascular surgery opinion has been recommended by Dr. Her. I discussed the care with Dr. Hines this morning on the floor. [id number]/[facility] #: [id number] JOHN
--- NOTE | 2019-05-10 16:46 | PN ---
Subjective Date of Service: 05/10/19 Interval History: HOSPITALIST PROGRESS NOTE Patient seen and examined at bedside. Care reviewed and d/w Yogi Wilson RN. He offers no new complaints today. Family History: Unchanged from Admission Social History: Unchanged from Admission Past Medical History: Unchanged from Admission Objective Active Medications: Acetaminophen (Tylenol Tab*) 650 mg PO Q6H PRN PRN Reason: MILD PAIN or TEMP > 100.4 Last Admin: 05/07/19 15:54 Dose: 650 mg Amlodipine Besylate (Norvasc Tab*) 10 mg PO DAILY [facility] Last Admin: 05/10/19 09:05 Dose: 10 mg Aspirin (Aspirin 81 Mg Chew Tab*) 81 mg PO DAILY [facility] Last Admin: 05/10/19 09:06 Dose: 81 mg Atorvastatin Calcium (Lipitor*) 80 mg PO DAILY [facility] Last Admin: 05/10/19 09:05 Dose: 80 mg Clopidogrel Bisulfate (Plavix Tab*) 75 mg PO DAILY [facility] Last Admin: 05/10/19 09:05 Dose: 75 mg Folic Acid (Folvite Tab*) 1 mg PO DAILY [facility] Last Admin: 05/10/19 09:05 Dose: 1 mg Gabapentin (Neurontin Cap(*)) 100 mg PO TID [facility] Last Admin: 05/10/19 13:41 Dose: 100 mg Sodium Chloride (Ns 0.9% 1000 Ml) 1,000 mls @ 125 mls/hr IV PER RATE [facility] Last Admin: 05/10/19 15:36 Dose: 125 mls/hr Vancomycin HCl 1,000 mg/ (Sodium Chloride) 250 mls @ 166.667 mls/hr IV Q12H [facility] Last Admin: 05/10/19 10:05 Dose: 166.667 mls/hr Metoprolol Succinate (Toprol Xl Tab*) 25 mg PO DAILY [facility] Last Admin: 05/10/19 09:09 Dose: 25 mg Multivitamins/Minerals (Theragran/Minerals Tab*) 1 tab PO DAILY [facility] Last Admin: 05/10/19 09:06 Dose: 1 tab Oxycodone/Acetaminophen (Percocet 5/325 Tab*) 1 tab PO Q4H PRN PRN Reason: PAIN - MODERATE Last Admin: 05/10/19 13:39 Dose: 1 tab Pharmacy Consult (Vancomycin Per Pharmacy*) 1 note FOLLOW UP .VANC PER PHARMACY [facility]; Protocol Pharmacy Profile Note (Vancomycin Trough Check) 1 note FOLLOW UP 08 ONE Stop: 05/12/19 08:31 Polyethylene Glycol/Electrolytes (Miralax*) 17 gm PO 0800,2100 [facility] Last Admin: 05/10/19 09:04 Dose: 17 gm Thiamine HCl (Vitamin B-1 Tab*) 100 mg PO DAILY [facility] Last Admin: 05/10/19 09:05 Dose: 100 mg Vital Signs - 8 hr 05/10/19 05/10/19 05/10/19 09:00 09:06 09:22 Temperature 98.2 F Pulse Rate 49 Respiratory 14 14 14 Rate Blood Pressure 131/73 (mmHg) O2 Sat by Pulse 97 Oximetry 05/10/19 05/10/19 05/10/19 11:22 13:39 13:41 Temperature 97.2 F Pulse Rate 59 Respiratory 20 17 17 Rate Blood Pressure 132/45 (mmHg) O2 Sat by Pulse 96 Oximetry Oxygen Devices in Use Now: None Appearance: Elderly gentleman sitting up in bed in NAD Eyes: No Scleral Icterus Ears/Nose/Mouth/Throat: Mucous Membranes Moist Neck: Trachea Midline Respiratory: Symmetrical Chest Expansion and Respiratory Effort, Clear to Auscultation Cardiovascular: RRR - Normal S1 and S2 Neurological: Alert and Oriented x 3, NL Muscle Strength and Tone Result Diagrams: 05/10/19 05:52 05/10/19 05:52 Assess/Plan/Problems-Billing Assessment: Mr. Higgins is a 89 yo M with PMH of HTN, HLD, CVA, DJD, recurrent LE cellulitis and wounds, who was transferred from [facility] due to celullitis and PVD. - Patient Problems (1) Cellulitis Comment: - Wound culture growing MRSA - continue Vancomycin. - ID input appreciated. - Surgery consult appreciated. (2) PVD (peripheral vascular disease) Comment: - Outpatient arterial doppler showed occluded left superficial femoral artery and popliteal arteries. - Dr Her input appreciated - extensive PVD, would require bypass. Patient not interested in trasnfer at this time. - Continue Aspirin, Clopidogrel, Atorvastatin. (3) HLD (hyperlipidemia) Comment: - Continue Atorvastatin. (4) HTN (hypertension) Comment: - Controlled. - Continue Amlodipine and Metoprolol. (5) DVT prophylaxis Comment: - SQ Heparin. (6) DNR (do not resuscitate) Status and Disposition: Inpatient. Tentative plan to discharge to [facility] on 05/12/2019.
[2019-05-10] MEDS: Heparin VIAL(*) 5000 UNITS/ML VIAL (FIVE THOUSAND) SUBCUT SCH (21:15)
[2019-05-10] MEDS ORDERED: Morphine INJ* 4 MG/ML 1 ML SYRINGE (NEW SYRINGE VERSION) IV ONE (23:23)
[2019-05-11] MEDS: Heparin VIAL(*) 5000 UNITS/ML VIAL (FIVE THOUSAND) SUBCUT SCH ×3 (05:55→21:36)
[2019-05-11 06:49] LABS: BUN/Creatinine Ratio 18.9 (8-20); Calcium 8.8 mg/dL (8.6-10.3); EGFR African American 79.6 (>60); EGFR Non-African American 65.8 (>60); Potassium 3.8 mmol/L (3.5-5.0)
[2019-05-11] MEDS: Clopidogrel TAB* 75 MG PO SCH (09:19)
[2019-05-11] MEDS: Aspirin 81 mg CHEW TAB* 81 MG TAB.CHEW PO SCH (09:19)
[2019-05-11] MEDS: amLODIPine TAB* 5 MG PO SCH (09:19)
[2019-05-11] MEDS: Thiamine TAB* 100 MG TAB PO SCH (09:19)
[2019-05-11] MEDS: Multivitamins/Minerals TAB PO SCH (09:19)
[2019-05-11] MEDS: Metoprolol Succinate XL TAB* 25 MG PO SCH (09:19)
[2019-05-11] MEDS: Gabapentin CAP(*) 100 MG PO SCH ×3 (09:19→21:37)
[2019-05-11] MEDS: Folic Acid TAB* 1 MG PO SCH (09:19)
[2019-05-11] MEDS: Atorvastatin* 80 MG TAB PO SCH (09:19)
[2019-05-11] MEDS: oxyCODONE/Acetamin 5/325 MG* TAB PO PRN ×2 (09:21→23:34)
[2019-05-11] MEDS: Vancomycin(*) 1,000 MG in NS 0.9% 250 ML* 250 ML IV SCH ×2 (09:22→21:36)
[2019-05-11] MEDS: Polyethylene Glycol 3350* 17 GM PACKET PO SCH ×2 (10:45→21:36)
--- NOTE | 2019-05-11 14:52 | PN ---
Subjective Date of Service: 05/11/19 Interval History: HOSPITALIST PROGRESS NOTE Patient seen and examined at bedside. Care reviewed and d/w Angie Crocker RN. He offers no complaints today. Family History: Unchanged from Admission Social History: Unchanged from Admission Past Medical History: Unchanged from Admission Objective Active Medications: Acetaminophen (Tylenol Tab*) 650 mg PO Q6H PRN PRN Reason: MILD PAIN or TEMP > 100.4 Last Admin: 05/07/19 15:54 Dose: 650 mg Amlodipine Besylate (Norvasc Tab*) 10 mg PO DAILY [facility] Last Admin: 05/11/19 09:19 Dose: 10 mg Aspirin (Aspirin 81 Mg Chew Tab*) 81 mg PO DAILY [facility] Last Admin: 05/11/19 09:19 Dose: 81 mg Atorvastatin Calcium (Lipitor*) 80 mg PO DAILY [facility] Last Admin: 05/11/19 09:19 Dose: 80 mg Clopidogrel Bisulfate (Plavix Tab*) 75 mg PO DAILY [facility] Last Admin: 05/11/19 09:19 Dose: 75 mg Folic Acid (Folvite Tab*) 1 mg PO DAILY [facility] Last Admin: 05/11/19 09:19 Dose: 1 mg Gabapentin (Neurontin Cap(*)) 100 mg PO TID [facility] Last Admin: 05/11/19 14:35 Dose: 100 mg Heparin Sodium (Porcine) (Heparin Vial(*)) 5,000 units SUBCUT Q8HR [facility] Last Admin: 05/11/19 14:35 Dose: 5,000 units Vancomycin HCl 1,000 mg/ (Sodium Chloride) 250 mls @ 166.667 mls/hr IV Q12H [facility] Last Admin: 05/11/19 09:22 Dose: 166.667 mls/hr Metoprolol Succinate (Toprol Xl Tab*) 25 mg PO DAILY [facility] Last Admin: 05/11/19 09:19 Dose: 25 mg Multivitamins/Minerals (Theragran/Minerals Tab*) 1 tab PO DAILY [facility] Last Admin: 05/11/19 09:19 Dose: 1 tab Oxycodone/Acetaminophen (Percocet 5/325 Tab*) 1 tab PO Q4H PRN PRN Reason: PAIN - MODERATE Last Admin: 05/11/19 09:21 Dose: 1 tab Pharmacy Consult (Vancomycin Per Pharmacy*) 1 note FOLLOW UP .VANC PER PHARMACY [facility]; Protocol Pharmacy Profile Note (Vancomycin Trough Check) 1 note FOLLOW UP 829 ONE Stop: 05/12/19 08:31 Polyethylene Glycol/Electrolytes (Miralax*) 17 gm PO 0800,2100 [facility] Last Admin: 05/11/19 10:45 Dose: Not Given Thiamine HCl (Vitamin B-1 Tab*) 100 mg PO DAILY [facility] Last Admin: 05/11/19 09:19 Dose: 100 mg Vital Signs - 8 hr 05/11/19 05/11/19 05/11/19 08:02 09:19 09:21 Temperature 97.6 F Pulse Rate 55 Respiratory 18 16 16 Rate Blood Pressure 149/70 (mmHg) O2 Sat by Pulse 96 Oximetry 05/11/19 05/11/19 05/11/19 10:00 11:29 12:26 Temperature 97.9 F Pulse Rate 52 Respiratory 18 16 18 Rate Blood Pressure 159/27 (mmHg) O2 Sat by Pulse 98 Oximetry 05/11/19 05/11/19 12:56 14:35 Temperature Pulse Rate Respiratory 16 Rate Blood Pressure 156/58 (mmHg) O2 Sat by Pulse Oximetry Oxygen Devices in Use Now: None Appearance: Elderly gentleman sitting up in bed in NAD Eyes: No Scleral Icterus Ears/Nose/Mouth/Throat: Mucous Membranes Moist Neck: Trachea Midline Respiratory: Symmetrical Chest Expansion and Respiratory Effort, Clear to Auscultation Cardiovascular: RRR - Normal S1 and S2 Extremities: - - Bilateral LE wounds - bilateral MTP eschars as well as an ulcer to lateral aspect of left leg. No palpable DP pulses Neurological: Alert and Oriented x 3, NL Muscle Strength and Tone Result Diagrams: 05/10/19 05:52 05/11/19 05:55 Assess/Plan/Problems-Billing Assessment: Mr. Higgins is a 89 yo M with PMH of HTN, HLD, CVA, DJD, recurrent LE cellulitis and wounds, who was transferred from [facility] due to celullitis and PVD. - Patient Problems (1) Cellulitis Comment: - Wound culture growing MRSA - continue Vancomycin. - ID and Surgery consults appreciated. - Depending on ID recommendation, may return to [facility] with IV Vancomycin, but as his infection is improved, may go home on PO antibiotics. (2) PVD (peripheral vascular disease) Comment: - Outpatient arterial doppler showed occluded left superficial femoral artery and popliteal arteries. - Dr Her input appreciated - extensive PVD, would require bypass. Patient not interested in transfer or surgery at this time. - Continue Aspirin, Clopidogrel, Atorvastatin. (3) HLD (hyperlipidemia) Comment: - Continue Atorvastatin. (4) HTN (hypertension) Comment: - Controlled. - Continue Amlodipine and Metoprolol. (5) DVT prophylaxis Comment: - SQ Heparin. (6) DNR (do not resuscitate) Status and Disposition: Inpatient. His neighbor (Angie Werner) was present at bedside and updated about plan.
[2019-05-12] MEDS ORDERED: Morphine INJ* 2 MG/ML 1 ML SYRINGE (TWO MG - NEW SYRINGE VERSION) IV ONE (02:23)
[2019-05-12] MEDS: oxyCODONE/Acetamin 5/325 MG* TAB PO PRN ×2 (06:11→10:16)
[2019-05-12] MEDS: Heparin VIAL(*) 5000 UNITS/ML VIAL (FIVE THOUSAND) SUBCUT SCH ×3 (06:12→20:36)
[2019-05-12] MEDS ORDERED: Vancomycin Trough Check NOTE FOLLOW UP ONE (08:30)
[2019-05-12] MEDS: Clopidogrel TAB* 75 MG PO SCH (09:04)
[2019-05-12] MEDS: Folic Acid TAB* 1 MG PO SCH (09:04)
[2019-05-12] MEDS: Metoprolol Succinate XL TAB* 25 MG PO SCH (09:04)
[2019-05-12] MEDS: Atorvastatin* 80 MG TAB PO SCH (09:04)
[2019-05-12] MEDS: Thiamine TAB* 100 MG TAB PO SCH (09:04)
[2019-05-12] MEDS: amLODIPine TAB* 5 MG PO SCH (09:04)
[2019-05-12] MEDS: Aspirin 81 mg CHEW TAB* 81 MG TAB.CHEW PO SCH (09:05)
[2019-05-12] MEDS: Polyethylene Glycol 3350* 17 GM PACKET PO SCH ×2 (09:05→20:37)
[2019-05-12] MEDS: Gabapentin CAP(*) 100 MG PO SCH ×3 (09:05→20:36)
[2019-05-12] MEDS: Multivitamins/Minerals TAB PO SCH (09:05)
[2019-05-12] MEDS: Vancomycin(*) 1,000 MG in NS 0.9% 250 ML* 250 ML IV SCH (10:12)
--- NOTE | 2019-05-12 11:11 | PN ---
Progress Note - Progress Note Date of Service: 05/12/19 SOAP: Subjective: CC: leg wound HPI: 89 year old man with chronic lower extremity wound and recent left lower lateral leg wound, culture from it grew MRSA and Acinetobacter at , treated there with IV antibiotics and transferred here. He feels well, no leg pain. No fever, rash, or diarrhea. Objective: Vital Signs Temp 36.5 C 05/12/19 07:56 Pulse 60 05/12/19 07:56 Resp 14 05/12/19 10:16 BP 155/55 05/12/19 07:56 Pulse Ox 97 05/12/19 07:56 Intake & Output 05/11/19 05/12/19 05/12/19 18:59 06:59 18:59 Intake Total 2212 300 340 Output Total 250 1095 200 Balance 1962 -795 140 Intake: IV Fluids 25 30 NS (0.9%) 25 30 IVPB 257 270 ABX - VANCOMYCIN 257 270 Oral 1930 0 340 Output: Urine 250 1095 200 Other: Estimated Void Small # Bowel Movements 0 # Voids 1 Gen:awake, no distress HEENT: no thrush Heart:RRR no murmur Lungs:CTA BL Abd:+BS NTND soft Skin: no rash MSK: left lower lateral leg 3 cm superficial wound no surrounding erythema Laboratory Results - last 24 hr 05/12/19 08:35 Vancomycin Trough 16.7 Assessment: 1. LEft leg wound, chronic; non pressure related , complicated by cellulitis which is improved 2. deaf 3. chronic lower extremity edema and recurrent wounds Plan: 1. change vancomycin to doxycycline for 1 more week, fu with wound clinic Discussed with Dr Bain
--- NOTE | 2019-05-12 13:21 | PN ---
Subjective Date of Service: 05/12/19 Interval History: No pain. No new c/o. Family History: Unchanged from Admission Social History: Unchanged from Admission Past Medical History: Unchanged from Admission Objective Active Medications: Acetaminophen (Tylenol Tab*) 650 mg PO Q6H PRN PRN Reason: MILD PAIN or TEMP > 100.4 Last Admin: 05/07/19 15:54 Dose: 650 mg Amlodipine Besylate (Norvasc Tab*) 10 mg PO DAILY [facility] Last Admin: 05/12/19 09:04 Dose: 10 mg Aspirin (Aspirin 81 Mg Chew Tab*) 81 mg PO DAILY [facility] Last Admin: 05/12/19 09:05 Dose: 81 mg Atorvastatin Calcium (Lipitor*) 80 mg PO DAILY [facility] Last Admin: 05/12/19 09:04 Dose: 80 mg Clopidogrel Bisulfate (Plavix Tab*) 75 mg PO DAILY [facility] Last Admin: 05/12/19 09:04 Dose: 75 mg Doxycycline Hyclate (Vibramycin Cap(*)) 100 mg PO BID [facility] Folic Acid (Folvite Tab*) 1 mg PO DAILY [facility] Last Admin: 05/12/19 09:04 Dose: 1 mg Gabapentin (Neurontin Cap(*)) 100 mg PO TID [facility] Last Admin: 05/12/19 09:05 Dose: 100 mg Heparin Sodium (Porcine) (Heparin Vial(*)) 5,000 units SUBCUT Q8HR [facility] Last Admin: 05/12/19 06:12 Dose: 5,000 units Metoprolol Succinate (Toprol Xl Tab*) 25 mg PO DAILY [facility] Last Admin: 05/12/19 09:04 Dose: 25 mg Multivitamins/Minerals (Theragran/Minerals Tab*) 1 tab PO DAILY [facility] Last Admin: 05/12/19 09:05 Dose: 1 tab Oxycodone/Acetaminophen (Percocet 5/325 Tab*) 1 tab PO Q4H PRN PRN Reason: PAIN - MODERATE Last Admin: 05/11/19 23:34 Dose: 1 tab Oxycodone/Acetaminophen (Percocet 5/325 Tab*) 2 tab PO Q4H PRN PRN Reason: PAIN - SEVERE Last Admin: 05/12/19 10:16 Dose: 2 tab Polyethylene Glycol/Electrolytes (Miralax*) 17 gm PO 0800,2100 [facility] Last Admin: 05/12/19 09:05 Dose: 17 gm Thiamine HCl (Vitamin B-1 Tab*) 100 mg PO DAILY [facility] Last Admin: 05/12/19 09:04 Dose: 100 mg Vital Signs - 8 hr 05/12/19 05/12/19 05/12/19 06:11 07:56 08:00 Temperature 97.7 F Pulse Rate 60 Respiratory 18 16 16 Rate Blood Pressure 155/55 (mmHg) O2 Sat by Pulse 97 Oximetry 05/12/19 05/12/19 05/12/19 09:05 10:16 11:53 Temperature 97.3 F Pulse Rate 88 Respiratory 16 14 18 Rate Blood Pressure 138/57 (mmHg) O2 Sat by Pulse 94 Oximetry 05/12/19 05/12/19 12:14 12:15 Temperature Pulse Rate Respiratory 16 16 Rate Blood Pressure (mmHg) O2 Sat by Pulse Oximetry Oxygen Devices in Use Now: None Appearance: Alert, partly up in bed. Neutral affect. Looks comfortable. Eyes: No Scleral Icterus Extremities: No Clubbing, Cyanosis, - - L leg 6 x 8 cm shallow ulcer, clean base. Both lower legs uniformly mod red. Neurological: Alert and Oriented x 3, NL Sensation Result Diagrams: 05/10/19 05:52 05/11/19 05:55 Assess/Plan/Problems-Billing Assessment: Mr. Higgins is a 89 yo M with PMH of HTN, HLD, CVA, DJD, recurrent LE cellulitis and wounds, who was transferred from [facility] due to celullitis and PVD. - Patient Problems (1) Cellulitis Current Visit: Yes Status: Acute Code(s): L03.90 - CELLULITIS, UNSPECIFIED SNOMED Code(s): 532248411 Comment: - Wound culture growing MRSA - change on 05/05 from Vancomycin to po doxy.. - ID and Surgery consults appreciated. Will ask for PT eval to see if it is safe for him to go home. Friend reports one leg is shorter than the other. (2) PVD (peripheral vascular disease) Current Visit: Yes Status: Acute Code(s): I73.9 - PERIPHERAL VASCULAR DISEASE, UNSPECIFIED SNOMED Code(s): 226227149 Comment: - Outpatient arterial doppler showed occluded left superficial femoral artery and popliteal arteries. - Dr Her input appreciated - extensive PVD, would require bypass. Patient not interested in transfer or surgery at this time. - Continue Aspirin, Clopidogrel, Atorvastatin. (3) HTN (hypertension) Current Visit: Yes Status: Acute Code(s): I10 - ESSENTIAL (PRIMARY) HYPERTENSION SNOMED Code(s): 62325020 Comment: - Controlled. - Continue Amlodipine and Metoprolol. (4) History of CVA (cerebrovascular accident) Current Visit: Yes Status: Acute Code(s): Z86.73 - PRSNL HX OF TIA (TIA), AND CEREB INFRC W/O RESID DEFICITS SNOMED Code(s): 036674842 Comment: -No acute issues - will continue statin, aspirin and plavix (5) HLD (hyperlipidemia) Current Visit: Yes Status: Acute Code(s): E78.5 - HYPERLIPIDEMIA, UNSPECIFIED SNOMED Code(s): 75921526 Comment: - Continue Atorvastatin. Status and Disposition: Inpatient. His neighbor (Angie Werner) was present at bedside and updated about plan.
[2019-05-12] MEDS: DOXYcycline CAP(*) 100 MG PO SCH (20:36)
[2019-05-13] MEDS: Heparin VIAL(*) 5000 UNITS/ML VIAL (FIVE THOUSAND) SUBCUT SCH (05:42)
[2019-05-13 06:26] LABS: ABS Basophils 0.1 10^3/ul (0-0.2); ABS Eosinophils 0.3 10^3/ul (0-0.6); ABS Lymphocytes 1.1 10^3/ul (1.0-4.8); ABS Monocytes 0.7 10^3/ul (0-0.8); ABS Neutrophils 2.5 10^3/ul (1.5-7.7); Eosinophil % 6.3 %; Hematocrit 34 % (42-52); Hemoglobin 12.3 g/dL (14.0-18.0); Lymphocyte % 22.9 %; Mean Corpuscular HGB Conc 36 g/dL (31-36); Mean Corpuscular Hemoglobin 33 pg (27-31); Mean Corpuscular Volume 92 fL (80-94); Mean Platelet Volume 7.6 fL (7.4-10.4); Platelet Count 124 10^3/uL (150-450); Red Cell Distribution Width 14 % (10-15); White Blood Count 4.7 10^3/uL (3.5-10.8)
[2019-05-13] MEDS: Polyethylene Glycol 3350* 17 GM PACKET PO SCH (07:29)
[2019-05-13] MEDS: Multivitamins/Minerals TAB PO SCH (07:30)
[2019-05-13] MEDS: Thiamine TAB* 100 MG TAB PO SCH (07:30)
[2019-05-13] MEDS: Gabapentin CAP(*) 100 MG PO SCH (07:32)
[2019-05-13] MEDS: Aspirin 81 mg CHEW TAB* 81 MG TAB.CHEW PO SCH (07:33)
[2019-05-13] MEDS: Folic Acid TAB* 1 MG PO SCH (07:33)
[2019-05-13] MEDS: Atorvastatin* 80 MG TAB PO SCH (07:34)
[2019-05-13] MEDS: Clopidogrel TAB* 75 MG PO SCH (07:34)
[2019-05-13] MEDS: DOXYcycline CAP(*) 100 MG PO SCH (07:34)
[2019-05-13] MEDS: Metoprolol Succinate XL TAB* 25 MG PO SCH (07:35)
[2019-05-13] MEDS: amLODIPine TAB* 5 MG PO SCH (07:36)
[2019-05-13 11:11] VITALS: BP 135/62
--- NOTE | 2019-05-13 12:55 | PN ---
Subjective Date of Service: 05/13/19 Interval History: The patient was initially mute and motionless when I entered his room but when I itzel 2 nurses to see him he suddnely started shouting and complaining that he had not bee allowed to go to the bathroom when he needed to. Family History: Unchanged from Admission Social History: Unchanged from Admission Past Medical History: Unchanged from Admission Objective Active Medications: Acetaminophen (Tylenol Tab*) 650 mg PO Q6H PRN PRN Reason: MILD PAIN or TEMP > 100.4 Last Admin: 05/07/19 15:54 Dose: 650 mg Amlodipine Besylate (Norvasc Tab*) 10 mg PO DAILY [facility] Last Admin: 05/13/19 07:36 Dose: 10 mg Aspirin (Aspirin 81 Mg Chew Tab*) 81 mg PO DAILY [facility] Last Admin: 05/13/19 07:33 Dose: 81 mg Atorvastatin Calcium (Lipitor*) 80 mg PO DAILY [facility] Last Admin: 05/13/19 07:34 Dose: 80 mg Clopidogrel Bisulfate (Plavix Tab*) 75 mg PO DAILY [facility] Last Admin: 05/13/19 07:34 Dose: 75 mg Doxycycline Hyclate (Vibramycin Cap(*)) 100 mg PO BID [facility] Last Admin: 05/13/19 07:34 Dose: 100 mg Folic Acid (Folvite Tab*) 1 mg PO DAILY [facility] Last Admin: 05/13/19 07:33 Dose: 1 mg Gabapentin (Neurontin Cap(*)) 100 mg PO TID [facility] Last Admin: 05/13/19 07:32 Dose: 100 mg Heparin Sodium (Porcine) (Heparin Vial(*)) 5,000 units SUBCUT Q8HR [facility] Last Admin: 05/13/19 05:42 Dose: 5,000 units Metoprolol Succinate (Toprol Xl Tab*) 25 mg PO DAILY [facility] Last Admin: 05/13/19 07:35 Dose: 25 mg Multivitamins/Minerals (Theragran/Minerals Tab*) 1 tab PO DAILY [facility] Last Admin: 05/13/19 07:30 Dose: 1 tab Oxycodone/Acetaminophen (Percocet 5/325 Tab*) 1 tab PO Q4H PRN PRN Reason: PAIN - MODERATE Last Admin: 05/11/19 23:34 Dose: 1 tab Oxycodone/Acetaminophen (Percocet 5/325 Tab*) 2 tab PO Q4H PRN PRN Reason: PAIN - SEVERE Last Admin: 05/12/19 10:16 Dose: 2 tab Polyethylene Glycol/Electrolytes (Miralax*) 17 gm PO 0800,2100 [facility] Last Admin: 05/13/19 07:29 Dose: 17 gm Thiamine HCl (Vitamin B-1 Tab*) 100 mg PO DAILY [facility] Last Admin: 05/13/19 07:30 Dose: 100 mg Vital Signs - 8 hr 05/13/19 05/13/19 05/13/19 07:32 07:35 08:00 Temperature 98.2 F Pulse Rate 53 Respiratory 18 18 16 Rate Blood Pressure 160/66 (mmHg) O2 Sat by Pulse 95 Oximetry 05/13/19 05/13/19 10:22 10:41 Temperature 98.1 F Pulse Rate 55 Respiratory 18 16 Rate Blood Pressure 135/62 (mmHg) O2 Sat by Pulse 95 Oximetry Oxygen Devices in Use Now: None Appearance: Alert, affect as in history. Looks comfortable. Eyes: No Scleral Icterus Extremities: No Edema, No Clubbing, Cyanosis, - Skin: No Rash or Ulcers, No Nodules or Sclerosis, - Neurological: NL Sensation - Transfers to walker from bed well. Walks in mann well with walker. Result Diagrams: 05/13/19 05:52 05/11/19 05:55 Assess/Plan/Problems-Billing Assessment: Mr. Higgins is a 89 yo M with PMH of HTN, HLD, CVA, DJD, recurrent LE cellulitis and wounds, who was transferred from [facility] due to celullitis and PVD. - Patient Problems (1) Cellulitis Current Visit: Yes Status: Acute Code(s): L03.90 - CELLULITIS, UNSPECIFIED SNOMED Code(s): 322504384 Comment: - Wound culture growing MRSA - change on 05/05 from Vancomycin to po doxy.. - ID and Surgery consults appreciated. Message left for AURORA Adams to call me regarding his discharge, transport, and home care and fup medical care. (2) PVD (peripheral vascular disease) Current Visit: Yes Status: Acute Code(s): I73.9 - PERIPHERAL VASCULAR DISEASE, UNSPECIFIED SNOMED Code(s): 318328223 Comment: - Outpatient arterial doppler showed occluded left superficial femoral artery and popliteal arteries. - Dr Her input appreciated - extensive PVD, would require bypass. Patient not interested in transfer or surgery at this time. - Continue Aspirin, Clopidogrel, Atorvastatin. (3) HTN (hypertension) Current Visit: Yes Status: Acute Code(s): I10 - ESSENTIAL (PRIMARY) HYPERTENSION SNOMED Code(s): 09366462 Comment: - Controlled. - Continue Amlodipine and Metoprolol. (4) History of CVA (cerebrovascular accident) Current Visit: Yes Status: Acute Code(s): Z86.73 - PRSNL HX OF TIA (TIA), AND CEREB INFRC W/O RESID DEFICITS SNOMED Code(s): 482967724 Comment: -No acute issues - will continue statin, aspirin and plavix (5) HLD (hyperlipidemia) Current Visit: Yes Status: Acute Code(s): E78.5 - HYPERLIPIDEMIA, UNSPECIFIED SNOMED Code(s): 56033067 Comment: - Continue Atorvastatin. Status and Disposition: Inpatient. His neighbor (Angie Werner) was present at bedside and updated about plan.
--- NOTE | 2019-05-13 13:39 | PN ---
Progress Note - Progress Note Date of Service: 05/13/19 Note: Time spent on discharge including exam of patient, discussion with patient, nurse, CM, friend, review of EHR and preparation of discharge documents is 50 minutes.
--- NOTE | 2019-05-13 20:02 | DS ---
DISCHARGE SUMMARY: DATE OF ADMISSION: DATE OF DISCHARGE: 05/13/19 HISTORY OF PRESENT ILLNESS/HOSPITAL COURSE: This 89-year-old man was transferred from [facility] with cellulitis of lower extremities. Venous Doppler showed occluded superficial femoral and popliteal arteries and dampened waveforms suggestive of mild flow reduction in the right lower extremity arterial system. The patient was treated with intravenous antibiotics. Dr. Her did angiogram of his legs. He felt that the peripheral vascular disease was not amenable to catheter treatment, but would require surgical procedure. Dr. Garcia saw him in consultation and explained what this would entail. The patient was not interested in the surgical procedure. He did improve medically with the cellulitis. He was fully ambulatory and pretty much at his baseline. Wound cultures grew out various bacteria including MRSA, Acinetobacter, and non-MRSA Staph aureus. The utility of these surface cultures is not very great. He was treated with antibiotics and was given a 7-day supply of doxycycline to complete his treatment at home. FINAL DIAGNOSES: 1. Cellulitis with ulcer, left leg. 2. Peripheral vascular disease. 3. Hypertension. 4. History of cerebrovascular accident. 5. Hyperlipidemia. 6. Diminished hearing. DISCHARGE MEDICATIONS: 1. Doxycycline 100 mg b.i.d. 2. Gabapentin 100 mg t.i.d. 3. Amlodipine 5 mg daily. 4. Aspirin 81 mg daily. 5. Atorvastatin 80 mg daily. 6. Clopidogrel 75 mg daily. 7. Folic acid 1 mg daily. 8. Metoprolol succinate 25 mg daily. 9. Multivitamin with mineral 1 daily. 10. Polyethylene glycol 17 g twice daily. 11. Thiamine 100 mg daily. CONDITION ON DISCHARGE: Improved. DISPOSITION ON DISCHARGE: Discharged home. I was able to speak directly to his friend's son who assured me that the patient was seen virtually every day and there was plenty of help getting him groceries and going to doctor's appointments. [id number]/[facility] #: [id number] [facility]Mode
== END 2019-05-13 14:15 | disposition home or self-care (01) | DRG 300 ==
LOC: MED 13:01
PROVIDERS: ADMIT Internal Medicine; ATTEND Internal Medicine
PROC: B41GYZZ Fluoroscopy of Left Lower Extremity Arteries using Other Contrast (ICD-10-PCS; principal; 2019-05-10)
PROC: B41CYZZ Fluoroscopy of Pelvic Arteries using Other Contrast (ICD-10-PCS; 2019-05-10)
PROC: B41FYZZ Fluoroscopy of Right Lower Extremity Arteries using Other Contrast (ICD-10-PCS; 2019-05-10)
DX: I77.9 Disorder of arteries and arterioles, unspecified (principal); L03.116 Cellulitis of left lower limb; L03.115 Cellulitis of right lower limb; E78.5 Hyperlipidemia, unspecified; I10 Essential (primary) hypertension; I73.9 Peripheral vascular disease, unspecified; M19.90 Unspecified osteoarthritis, unspecified site; B95.62 Methicillin resistant Staphylococcus aureus infection as the cause of diseases classified elsewhere; B96.89 Other specified bacterial agents as the cause of diseases classified elsewhere; L97.529 Non-pressure chronic ulcer of other part of left foot with unspecified severity; L97.519 Non-pressure chronic ulcer of other part of right foot with unspecified severity; H91.90 Unspecified hearing loss, unspecified ear; Z66 Do not resuscitate; B95.61 Methicillin susceptible Staphylococcus aureus infection as the cause of diseases classified elsewhere; Z86.73 Personal history of transient ischemic attack (TIA), and cerebral infarction without residual deficits; Z79.82 Long term (current) use of aspirin; Z79.899 Other long term (current) drug therapy; Z87.891 Personal history of nicotine dependence; Z28.21 Immunization not carried out because of patient refusal; Z79.02 Long term (current) use of antithrombotics/antiplatelets
CPT/HCPCS: 36415; 75716; 75736; 76937; 80048; 80202; 82565; 84520; 85025; 85027; 85347; 85730; 86140; 99156; 99157; A9270-GY; C1760; C1887; C1894; J0360; J1644; J2250; J2270; J2543; J3010; J3370